=== PATIENT | male | born 1970 | race Caucasian/White ===

== ENCOUNTER 2020-07-01 11:37 | Inpatient (IN) ==
[2020-07-01] MEDS ORDERED: DEXAMETHASONE SOD INJ 10 MG/ML VIAL IV ONE (12:02)
--- NOTE | 2020-07-01 12:33 | Emergency Department Note ---
Impression & Plan COVID-19, Hypoxia ED Provider Note NAME: RANJEET JAVIER AGE: 49 SEX: M : 1970 ARRIVES VIA: Walk-In INFORMANT: Patient, ED PROVIDER(S): Byron Mcghee MD Chief Complaint: Shortness of breath HPI: Patient does present with worsening shortness of breath exertional dyspnea and lower pulse ox even with oxygen. I had seen the patient yesterday the patient was diagnosed with Covid back on the sixth and has had about 9 days of symptoms in total. Patient had had some diarrhea last night. No nausea or vomi ting. Patient has had occasional fevers and chills. The patient was discharged home on oxygen therapy yesterday but states that with exertion and even at rest the patient does dip into the 80s. The patient has been taking his medications including the Breo. No lower extremity swelling. Patient denies any chest pains but has had some some nonproductive cough. Patient is a non-smoker. ROS: See HPI for pertinent positives and negatives. A total of 10 systems were reviewed and otherwise negative. Past medical history: See below Surgical history: See below Social history: See below Physical Exam: GENERAL: Wearing glasses and a mask. NAD, non-toxic. EYE EXAM: Normal conjunctiva. PERRL, no anisocoria and EOM's grossly intact w/o pain. NECK: Supple, no nuchal rigidity, no adenopathy, non-tender. No signs of meningismus. LUNGS: Clear to auscultation. Normal chest wall mechanics. HEART: NSR, no MRG. ABDOMEN: Abdomen soft, non-tender, normo-active bowel sounds, no masses, no rebound or guarding. BACK: No CVA TTP. SKIN: No rashes and no bruising. UPPER EXTREMITIES: Upper extremities are grossly normal. LOWER EXTREMITIES: Grossly normal, no edema. Negative Homans' sign bilaterally. NEURO EXAM: A&O x3, cranial nerves II-XII grossly intact, normal speech, moves all 4 extremities on command w/o issue. Differential diagnoses: Reactive airway disease, pneumonia, pneumothorax, COPD, CHF, infections, cardiac ischemia, pulmonary embolism, musculoskeletal, gastrointestinal, as well as other pathologies. Course: Patient was seen and evaluated the bedside. Full history physical exam was performed. EKG: Indication: Shortness of breath Imaging Studies: Radiology results as stated below per my review in the radiologist's interpretation: XR chest 1V portable HISTORY: 49 years-old Male weakness acute weakness COMPARISON: Chest radiograph 06/30/2020 TECHNIQUE: Portable AP view of the chest FINDINGS: Cardiac silhouette is upper limits of normal in size. No pneumothorax or large pleural effusion. Interstitial coarsening redemonstrated with generally unchanged appearance of the bibasilar predominant patchy airspace opacities. IMPRESSION: No significant change of the bilateral pulmonary opacities suggestive of multifocal pneumonia. ACT 112: Negative or not required by law. The above report was generated using voice recognition software. It may contain grammatical, syntax or spelling errors. Electronically signed by: Reid Suazo M.D. 07/01/2020 1:07 PM Dictated: 07/01/201305 Transcribed: 07/01/201305 Cardiac monitoring: An order was placed for continuous cardiac monitoring. The monitor shows a rate of 76 with sinus rhythm. MDM: Patient did present with concern for worsening shortness of breath and recent Covid illness. Blood work was obtained along with an EKG troponin chest x-ray the patient was given dexamethasone and IV fluids. Pro-Laejo and blood cultures also obtained. Given the patient's hypoxia and symptoms even on at home oxygen I did speak the on-call hospitalist. The patient did receive his dexamethasone. I did speak with Dr. Guzman of the [facility] physician group. Critical Care: I have personally spent 45 minutes of critical care time in direct management of this patient. This includes bedside care, interpretation of diagnostic studies, and testing, discussion with consultants, patient, and family members, and other require inpatient management activities. This 45 minutes is in excess of all [facility] billable procedures. Past Med/Surg History Medical History No pertinent past medical history Surgical History No pertinent past surgical history Family History (Updated 07/01/20 @ 14:06 by Mary Guzman MD) Other Family history non-contributory Social History Smoking Status: Never smoker Feels Safe at Home: Yes Allergies Allergies Allergy/AdvReac Type Severity Reaction Status Date / Time shellfish derived Allergy LIPS & Verified 07/01/20 12:27 MOUTH SWELLS, ITCHY Home Meds Home Medications Medication Instructions Recorded Confirmed Queretin 1 tab PO DAILY 06/30/20 07/01/20 ascorbic acid (vitamin C) [Vitamin 1 g PO DAILY 06/30/20 07/01/20 C] azithromycin 500 mg PO DAILY 06/30/20 07/01/20 cholecalciferol (vitamin D3) 125 mcg PO DAILY 06/30/20 07/01/20 [Vitamin D3] dextroamphetamine-amphetamine 37.5 mg PO DAILY 06/30/20 07/01/20 [Mydayis] fluticasone furoate-vilanterol 1 ea INHALATION DAILY 06/30/20 07/01/20 [Breo Ellipta] montelukast [Singulair] 10 mg PO DAILY 06/30/20 07/01/20 prednisone 20 mg PO UD 06/30/20 07/01/20 zinc 50 mg PO DAILY 06/30/20 07/01/20 Previous Rx's Medication Instructions Recorded dexamethasone 6 mg PO DAILY #6 tab 06/30/20 Results & Data (ED) Vital Signs Vital Signs - 24 hr 07/01/20 11:41 07/01/20 12:03 07/01/20 12:28 Temperature 36.8 C Temperature Source Oral Pulse Rate 76 Pulse Rate [Apical] Pulse Rate from SpO2 Sensor Respiratory Rate 18 Respiratory Effort / Characteristics Short of Breath SOB on Exertion Blood Pressure 157/105 H Blood Pressure [Left Arm] Blood Pressure Mean 122 Blood Pressure Mean [Left Arm] Pulse Oximetry 91 94 94 Oxygen Delivery Method Nasal Cannula Nasal Cannula Nasal Cannula Oxygen Flow Rate 3 4 4 Sepsis Recent Fever Within 48 Hours No Sepsis New/Unexplained Change in Mental Status No Sepsis Action Taken by Nursing No Action Required 07/01/20 12:34 07/01/20 13:01 07/01/20 13:30 Temperature Temperature Source Pulse Rate 74 72 64 Pulse Rate [Apical] Pulse Rate from SpO2 Sensor 74 71 65 Respiratory Rate 24 27 H 16 Respiratory Effort / Characteristics Blood Pressure 142/86 H 141/82 H 154/94 H Blood Pressure [Left Arm] Blood Pressure Mean 99 98 111 Blood Pressure Mean [Left Arm] Pulse Oximetry 94 93 95 Oxygen Delivery Method Oxygen Flow Rate Sepsis Recent Fever Within 48 Hours Sepsis New/Unexplained Change in Mental Status Sepsis Action Taken by Nursing 07/01/20 14:30 07/01/20 15:00 Temperature Temperature Source Pulse Rate 73 Pulse Rate [Apical] 75 Pulse Rate from SpO2 Sensor 76 Respiratory Rate 28 H Respiratory Effort / Characteristics Blood Pressure 170/97 H Blood Pressure [Left Arm] 158/96 H Blood Pressure Mean 120 Blood Pressure Mean [Left Arm] 116 Pulse Oximetry 95 93 Oxygen Delivery Method Oxygen Flow Rate Sepsis Recent Fever Within 48 Hours Sepsis New/Unexplained Change in Mental Status Sepsis Action Taken by [facility]way Medications Current Medication List: was personally reviewed by me Laboratory Data Attestation: I reviewed the patient's lab results. Result diagrams: 07/01/20 12:42 07/01/20 12:42 Lab Results 07/01/20 07/01/20 07/01/20 Range/Units 12:42 12:42 12:42 WBC 8.79 (4.8-10.8) K/uL RBC 5.07 (4.7-6.1) M/uL Hgb 15.4 (14.0-18.0) g/dL Hct 43.7 (42-52) % MCV 86.2 (80-100) fL MCH 30.4 (25-34) pg MCHC 35.2 (32-36) g/dL RDW Std Deviation 40.0 (36.4-46.3) fL RDW Coeff of Melani 12.6 (11.5-14.5) % Plt Count 245 (130-400) K/uL MPV 10.3 (7.4-10.4) fL Immature Gran % (Auto) 0.3 % Neut % (Auto) 87.4 % Lymph % (Auto) 7.2 % Mcnairy % (Auto) 5.1 % Eos % (Auto) 0.0 % Baso % (Auto) 0.0 % Neut # (Auto) 7.68 H (1.4-6.5) K/uL Lymph # (Auto) 0.63 L (1.2-3.4) K/uL Mcnairy # (Auto) 0.45 (0.11-0.59) K/uL Eos # (Auto) 0.00 (0-0.5) K/uL Baso # (Auto) 0.00 (0-0.2) K/uL Immature Gran # (Auto) 0.03 H (0.00-0.02) K/uL D-Dimer (0-500) ug/L FEU Sodium 136 (136-145) mmol/L Potassium 4.2 (3.5-5.1) mmol/L Chloride 105 (98-107) mmol/L Carbon Dioxide 23 (21-32) mmol/L Anion Gap 8.0 (3-11) BUN 20 H (7-18) mg/dl Creatinine 0.99 (0.6-1.4) mg/dl Est Cr Clr Drug Dosing 117.2 ml/min Est GFR ( Amer) 101.8 Est GFR (Non-Af Amer) 87.8 BUN/Creatinine Ratio 20.1 H (10-20) Glucose 138 H (70-99) mg/dl Calcium 9.0 (8.5-10.1) mg/dl Total Bilirubin 0.4 (0.2-1) mg/dl AST 63 H (15-37) U/L ALT 63 (12-78) U/L Alkaline Phosphatase 41 L (45-117) U/L Total Protein 7.2 (6.4-8.2) gm/dl Albumin 2.8 L (3.4-5.0) gm/dl Globulin 4.4 H (2.5-4.0) gm/dl Albumin/Globulin Ratio 0.6 L (0.9-2) Procalcitonin 0.11 (0-0.5) ng/ml TSH 0.841 (0.300-4.500) uIu/ml 07/01/20 Range/Units 13:13 WBC (4.8-10.8) K/uL RBC (4.7-6.1) M/uL Hgb (14.0-18.0) g/dL Hct (42-52) % MCV (80-100) fL MCH (25-34) pg MCHC (32-36) g/dL RDW Std Deviation (36.4-46.3) fL RDW Coeff of Melani (11.5-14.5) % Plt Count (130-400) K/uL MPV (7.4-10.4) fL Immature Gran % (Auto) % Neut % (Auto) % Lymph % (Auto) % Mcnairy % (Auto) % Eos % (Auto) % Baso % (Auto) % Neut # (Auto) (1.4-6.5) K/uL Lymph # (Auto) (1.2-3.4) K/uL Mcnairy # (Auto) (0.11-0.59) K/uL Eos # (Auto) (0-0.5) K/uL Baso # (Auto) (0-0.2) K/uL Immature Gran # (Auto) (0.00-0.02) K/uL D-Dimer 400 (0-500) ug/L FEU Sodium (136-145) mmol/L Potassium (3.5-5.1) mmol/L Chloride (98-107) mmol/L Carbon Dioxide (21-32) mmol/L Anion Gap (3-11) BUN (7-18) mg/dl Creatinine (0.6-1.4) mg/dl Est Cr Clr Drug Dosing ml/min Est GFR ( Amer) Est GFR (Non-Af Amer) BUN/Creatinine Ratio (10-20) Glucose (70-99) mg/dl Calcium (8.5-10.1) mg/dl Total Bilirubin (0.2-1) mg/dl AST (15-37) U/L ALT (12-78) U/L Alkaline Phosphatase (45-117) U/L Total Protein (6.4-8.2) gm/dl Albumin (3.4-5.0) gm/dl Globulin (2.5-4.0) gm/dl Albumin/Globulin Ratio (0.9-2) Procalcitonin (0-0.5) ng/ml TSH (0.300-4.500) uIu/ml Administered Medications Remdesivir 200 mg/ Sodium (Chloride) 250 mls @ 125 mls/hr IV ONE STA; Protocol Stop: 07/01/20 17:08 Last Admin: 07/01/20 15:33 Dose: 125 mls/hr Documented by: [id number] Discontinued Medications Dexamethasone (Dexamethasone Sod Inj 10 Mg/Ml Vial) 6 mg IV NOW ONE Stop: 07/01/20 12:03 Last Admin: 07/01/20 12:39 Dose: 6 mg Documented by: [id number] Discharge Plan Visit Data Chief Complaint: Shortness of Breath/Dyspnea Stated Complaint: COVID +,SEVERE SOB ED Provider: Byron Mcghee Discharge Problem: COVID-19, Hypoxia Forms Stand Alone Forms: My [facility] [place] [facility] Prest[facility] Prescriptions Prescriptions: No Action ascorbic acid (vitamin C) [Vitamin C] 1,000 mg Tablet 1 g PO DAILY RF: 0 prednisone 20 mg tablet 20 mg PO UD RF: 0 montelukast [Singulair] 10 mg tablet 10 mg PO DAILY RF: 0 zinc 50 mg Tablet 50 mg PO DAILY RF: 0 azithromycin 500 mg tablet 500 mg PO DAILY RF: 0 cholecalciferol (vitamin D3) [Vitamin D3] 125 mcg (5,000 unit) Tablet 125 mcg PO DAILY RF: 0 Breo Ellipta 200-25 mcg/dose blister with device 1 ea INHALATION DAILY RF: 0 Mydayis 37.5 mg capsule, ER triphasic 24 hr 37.5 mg PO DAILY RF: 0 Queretin 1 tab PO DAILY RF: 0 dexamethasone 6 mg tablet 6 mg PO DAILY Qty: 6 RF: 0 Referrals Referrals: Mir Farley [Primary Care Provider] -
[2020-07-01 13:00] LABS: Hematocrit (blood only) 43.7 % (42-52); Hemoglobin 15.4 g/dL (14.0-18.0); Immature Granulocytes # (auto) 0.03 K/uL (0.00-0.02); Immature Granulocytes % (auto) 0.3 %; Lymphocytes # (auto) 0.63 K/uL (1.2-3.4); Lymphocytes % (auto) 7.2 %; Mean Corpuscular Hemoglobin 30.4 pg (25-34); Mean Corpuscular Hgb Conc 35.2 g/dL (32-36); Mean Corpuscular Volume 86.2 fL (80-100); Mean Platelet Volume 10.3 fL (7.4-10.4); Monocytes # (auto) 0.45 K/uL (0.11-0.59); Monocytes % (auto) 5.1 %; Neutrophils # (auto) 7.68 K/uL (1.4-6.5); Neutrophils % (auto) 87.4 %; Platelet Count 245 K/uL (130-400); RDW Coefficient of Variation 12.6 % (11.5-14.5); Red Blood Count 5.07 M/uL (4.7-6.1); White Blood Count 8.79 K/uL (4.8-10.8)
--- NOTE | 2020-07-01 13:08 | XRay Report ---
XR chest 1V portable HISTORY: 49 years-old Male weakness acute weakness COMPARISON: Chest radiograph 06/30/2020 TECHNIQUE: Portable AP view of the chest FINDINGS: Cardiac silhouette is upper limits of normal in size. No pneumothorax or large pleural effusion. Inte rstitial coarsening redemonstrated with generally unchanged appearance of the bibasilar predominant p atchy airspace opacities. IMPRESSION: No significant change of the bilateral pulmonary opacities suggestive of multifocal pneum onia. ACT 112: Negative or not required by law. The above report was generated using voice recognition software. It may contain grammatical, syntax o r spelling errors. Electronically signed by: Reid Suazo M.D. 07/01/2020 1:07 PM
[2020-07-01 13:21] LABS: Albumin Level 2.8 gm/dl (3.4-5.0); BUN Creatinine Ratio 20.1 (10-20); Creatinine Clr Calc Pharmacy 117.2 ml/min; Est GFR (African American) 101.8; Est GFR (Non-African American) 87.8; Potassium 4.2 mmol/L (3.5-5.1)
[2020-07-01 13:31] LABS: Albumin Globulin Ratio 0.6 (0.9-2); Bilirubin,Total 0.4 mg/dl (0.2-1); Globulin 4.4 gm/dl (2.5-4.0); Thyroid Stimulating Hormone 0.841 uIu/ml (0.300-4.500); Total Protein 7.2 gm/dl (6.4-8.2)
--- NOTE | 2020-07-01 13:59 | History & Physical Report ---
Date of Service July 01, 2020 Assessment & Plan (1) Pneumonia due to COVID-19 virus: Patient presents with worsening hypoxia in the setting of Covid-19 pneumonia. He is around day 8-9 of his illness Admit to telemetry unit Continue supplemental O2 and wean off as needed keep pulse ox greater than 92% -Continue dexamethasone 6 mg IV once daily x10-day course -He is on the borderline of whether remdesivir or convalescent plasma would be of any utility, however he would really like to be treated with them (his friend is an infectious disease doctor at [facility] and recommended this)-start remdesivir x5-day course and verbally consented for convalescent plasma -Pulmonary toilet -Guaifenesin DM as needed -Albuterol every 6 hours scheduled Continue home zinc sulfate, vitamin D -Follow CBC, CMP, ESR, CRP, LDH in the morning (2) Hypoxia: Secondary to Covid-19 pneumonia D-dimer is negative Pulmonary toilet as above and treatment with Decadron as above Flutter valve 3 times daily and incentive spirometry Albuterol Continue supplemental O2 and wean off as able to Advised prone positioning as often as possible which she is able to do (3) Cough: Has a chronic cough prior to having Covid and takes Singulair for this Continue Singulair Continue Breo (4) Elevated LFTs: Minimally elevated AST at 63 Likely secondary to Covid-19 No abdominal pain Follow LFTs in the morning (5) ADHD: Can continue home medication if brought in (6) DVT prophylaxis: Lovenox 40 mg SQ twice daily Disposition-admit to telemetry unit, expected least a 2 midnight stay History of Present Illness Chief Complaint: Covid-19 pneumonia, worsening hypoxia Primary Care Provider: Mir Farley This patient is a 49-year-old male with no significant past medical history who presents to the ER for the second time in 2 days with worsening hypoxia at home and shortness of breath after being diagnosed with Covid-19 on 06/25. He contracted Covid-19 likely from his who returned from traveling to [facility]. He has had a productive cough and was seen in the ER yesterday and had a pulse ox of 94-95% on room air at rest but dropped to 85% with exertion and was sent home with supplemental O2 and a prescription for dexamethasone. He reports he returned today after worsening shortness of breath and pulse ox in the high 80s even on the oxygen at rest. He was taking the prescribed dexamethasone, as well as a Breo Ellipta inhaler and had completed a course of azithromycin that he was prescribed as an outpatient by his PCP. In the ER here today, he was on 4 L nasal cannula to maintain pulse ox of 94%. His CBC was within normal limits except for some mild lymphopenia, his chemistry was within normal limits, except for mild elevation of AST which was actually improved from yesterday. A D-dimer was negative. Urinalysis was negative. Chest x-ray showed no significant change of the bilateral pulmonary opacities suggestive of multifocal pneumonia when compared to chest x-ray from 06/30. Vitals revealed hypoxia and tachypnea, but no fever and he was hypertensive. He will be admitted for acute respiratory failure with hypoxia in the setting of Covid-19 pneumonia Allergies Allergy/AdvReac Type Severity Reaction Status Date / Time shellfish derived Allergy LIPS & Verified 07/01/20 12:27 MOUTH SWELLS, ITCHY Home Medications Medication Instructions Recorded Confirmed Type Queretin 1 tab PO DAILY 06/30/20 07/01/20 History ascorbic acid (vitamin C) [Vitamin 1 g PO DAILY 06/30/20 07/01/20 History C] azithromycin 500 mg PO DAILY 06/30/20 07/01/20 History cholecalciferol (vitamin D3) 125 mcg PO DAILY 06/30/20 07/01/20 History [Vitamin D3] dexamethasone 6 mg PO DAILY #6 tab 06/30/20 07/01/20 Rx dextroamphetamine-amphetamine 37.5 mg PO DAILY 06/30/20 07/01/20 History [Mydayis] fluticasone furoate-vilanterol 1 ea INHALATION DAILY 06/30/20 07/01/20 History [Breo Ellipta] montelukast [Singulair] 10 mg PO DAILY 06/30/20 07/01/20 History prednisone 20 mg PO UD 06/30/20 07/01/20 History zinc 50 mg PO DAILY 06/30/20 07/01/20 History Past Med/Surg History Medical History (Updated 07/01/20 @ 21:16 by Mary Guzman MD) ADHD Cough Surgical History (Updated 07/01/20 @ 20:55 by Mary Guzman MD) History of lipoma Family History Father Leukemia Mother Multiple sclerosis Stroke Social History (Updated 07/01/20 @ 20:59 by Mary Guzman MD) Smoking Status: Never smoker Hx Alcohol Use: Yes Hx Substance Use: Yes Last Used Substance: Unknown Substance Use Type Other:: Marijuana once every two years Preferred Language: Dutch Communication Ability: Effective Stretch Machine Operator Required: No Beliefs That Will Affect Care: None Current Living Situation: Family Current Living Situation Comment: Lives w/ and two sons current occupational status: employed 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 [employer] Other Information That Helps Us Care for You: No Feels Safe at Home: Yes Safety Concerns: Feels Safe At This Time Assistive Devices: Oxygen - Continuous Review of Systems Review of Systems: All systems reviewed & are unremarkable except as noted in HPI & below Denies headache or lightheadedness, no chest pain, no abdominal pain, no nausea/vomiting/diarrhea Positive occasional fevers at home Physical Exam Constitutional: WD/WN, vitals as above Eyes: + anicteric sclerae Neck: trachea midline, no thyromegaly Respiratory: Auscultation: + crackles (bibasilar); no rhonchi and no wheezes Cardiovascular: RRR, no murmur, no edema Chest (Breasts): Chest: normal inspection of chest Gastrointestinal (Abdomen): normal bowel sounds, soft, nontender, no hepatosplenomegaly Musculoskeletal: Extremities: extremities normal to inspection; no cyanosis and no clubbing Skin: no rashes, warm and dry Neurologic: moves all extremities and awake; no focal motor deficits Psychiatric: A+Ox3, euthymic affect Lymphatic: no lymphedema Results & Data Results & Data ([facility]) Vital Signs (Past 12 Hours) Vital Signs Temp Pulse Resp BP Pulse Ox 07/01/20 12:28 94 07/01/20 12:03 94 07/01/20 11:41 36.8 C 76 18 157/105 H 91 Laboratory Results 07/01/20 07/01/20 07/01/20 Range/Units 12:42 12:42 12:42 WBC 8.79 (4.8-10.8) K/uL RBC 5.07 (4.7-6.1) M/uL Hgb 15.4 (14.0-18.0) g/dL Hct 43.7 (42-52) % MCV 86.2 (80-100) fL MCH 30.4 (25-34) pg MCHC 35.2 (32-36) g/dL RDW Std Deviation 40.0 (36.4-46.3) fL RDW Coeff of Melani 12.6 (11.5-14.5) % Plt Count 245 (130-400) K/uL MPV 10.3 (7.4-10.4) fL Immature Gran % (Auto) 0.3 % Neut % (Auto) 87.4 % Lymph % (Auto) 7.2 % Edgar % (Auto) 5.1 % Eos % (Auto) 0.0 % Baso % (Auto) 0.0 % Neut # (Auto) 7.68 H (1.4-6.5) K/uL Lymph # (Auto) 0.63 L (1.2-3.4) K/uL Edgar # (Auto) 0.45 (0.11-0.59) K/uL Eos # (Auto) 0.00 (0-0.5) K/uL Baso # (Auto) 0.00 (0-0.2) K/uL Immature Gran # (Auto) 0.03 H (0.00-0.02) K/uL Sodium 136 (136-145) mmol/L Potassium 4.2 (3.5-5.1) mmol/L Chloride 105 (98-107) mmol/L Carbon Dioxide 23 (21-32) mmol/L Anion Gap 8.0 (3-11) BUN 20 H (7-18) mg/dl Creatinine 0.99 (0.6-1.4) mg/dl Est Cr Clr Drug Dosing 117.2 ml/min Est GFR ( Amer) 101.8 Est GFR (Non-Af Amer) 87.8 BUN/Creatinine Ratio 20.1 H (10-20) Glucose 138 H (70-99) mg/dl Calcium 9.0 (8.5-10.1) mg/dl Total Bilirubin 0.4 (0.2-1) mg/dl AST 63 H (15-37) U/L ALT 63 (12-78) U/L Alkaline Phosphatase 41 L (45-117) U/L Total Protein 7.2 (6.4-8.2) gm/dl Albumin 2.8 L (3.4-5.0) gm/dl Globulin 4.4 H (2.5-4.0) gm/dl Albumin/Globulin Ratio 0.6 L (0.9-2) Procalcitonin 0.11 (0-0.5) ng/ml TSH 0.841 (0.300-4.500) uIu/ml Troponin from 06/30 was negative Diagnostic Findings Chest x-ray image personally reviewed by me and agree with phone report: XR chest 1V portable HISTORY: 49 years-old Male weakness acute weakness COMPARISON: Chest radiograph 06/30/2020 TECHNIQUE: Portable AP view of the chest FINDINGS: Cardiac silhouette is upper limits of normal in size. No pneumothorax or large pleural effusion. Interstitial coarsening redemonstrated with generally unchanged appearance of the bibasilar predominant patchy airspace opacities. IMPRESSION: No significant change of the bilateral pulmonary opacities suggestive of multifocal pneumonia. ECG Additional Comments: ECG from 07/01/2020 at 1228 with normal sinus rhythm, rate 66, nonspecific intraventricular conduction delay, no change from previous Code Status & VTE Plan Code Status Full code VTE Prophylaxis Plan VTE Prophylaxis will be ordered: Yes PG Care Time/CCT Total # of Minutes Spent Total Time Spent with Patient: Total time spent is greater than 50% in coordination of care (as documented) at patient's floor/unit and/or counseling patient: Coding Level of Care Code 51031 Initial Inpt Care Lvl 3 Diagnoses Pneumonia due to COVID-19 virus U07.1; J12.82 Hypoxia R09.02 Cough R05 Elevated LFTs R79.89 ADHD F90.9 DVT prophylaxis Z29.9
[2020-07-01 15:06] LABS: D Dimer 400 ug/L FEU (0-500)
[2020-07-01] MEDS ORDERED: REMDESIVIR 200 MG in SODIUM CHLORIDE 0.9% 210 ML IV STA (15:09)
--- NOTE | 2020-07-01 15:29 | Electrocardiogram Report ---
Test Reason : Blood Pressure : / mmHG Vent. Rate : 066 BPM Atrial Rate : 066 BPM P-R Int : 172 ms QRS Dur : 120 ms QT Int : 424 ms P-R-T Axes : 024 011 041 degrees QTc Int : 444 ms Normal sinus rhythm Right bundle branch block Borderline ECG When compared with ECG of 30-JUN-2020 15:21, No significant change was found Confirmed by Driss Shelby ([id number]) on 07/01/2020 3:29:25 PM Referred By: REFERRED SELF Confirmed By:Driss Shelby
[2020-07-01] MEDS ORDERED: guaiFENesin/DEXTROM SYRUP 100MG/10MG 5ML UDC PO PRN (17:06)
[2020-07-01] MEDS ORDERED: ONDANSETRON INJ 2 MG/ML 2 ML VIAL IV PRN (17:06)
[2020-07-01] MEDS: SODIUM CHLORIDE 0.9% 10ML FLUSH IV SCH (17:55)
[2020-07-01] MEDS: ALBUTEROL HFA 8 GM INHALER INH SCH (19:45)
[2020-07-01] MEDS: ENOXAPARIN INJ 40 MG/0.4 ML SYR SQ SCH (20:17)
[2020-07-02] MEDS: ACETAMINOPHEN 325 MG TAB PO PRN (01:02)
[2020-07-02] MEDS: ALBUTEROL HFA 8 GM INHALER INH SCH ×2 (01:12→07:37)
[2020-07-02 07:11] LABS: Basophils # (auto) 0.01 K/uL (0-0.2); Basophils % (auto) 0.1 %; Hematocrit (blood only) 40.7 % (42-52); Hemoglobin 14.2 g/dL (14.0-18.0); Immature Granulocytes # (auto) 0.03 K/uL (0.00-0.02); Immature Granulocytes % (auto) 0.3 %; Lymphocytes # (auto) 1.44 K/uL (1.2-3.4); Lymphocytes % (auto) 12.7 %; Mean Corpuscular Hemoglobin 30.3 pg (25-34); Mean Corpuscular Hgb Conc 34.9 g/dL (32-36); Mean Corpuscular Volume 86.8 fL (80-100); Mean Platelet Volume 10.3 fL (7.4-10.4); Monocytes # (auto) 0.64 K/uL (0.11-0.59); Monocytes % (auto) 5.6 %; Neutrophils # (auto) 9.23 K/uL (1.4-6.5); Neutrophils % (auto) 81.3 %; Platelet Count 276 K/uL (130-400); RDW Coefficient of Variation 12.5 % (11.5-14.5); Red Blood Count 4.69 M/uL (4.7-6.1); White Blood Count 11.35 K/uL (4.8-10.8)
[2020-07-02 07:41] LABS: Albumin Level 2.6 gm/dl (3.4-5.0); BUN Creatinine Ratio 19.1 (10-20); C Reactive Protein 9.37 mg/dl (0-0.29); Creatinine Clr Calc Pharmacy 113.7 ml/min; Est GFR (African American) 98.2; Est GFR (Non-African American) 84.7; Potassium 4.3 mmol/L (3.5-5.1)
[2020-07-02 07:44] LABS: Albumin Globulin Ratio 0.6 (0.9-2); Bilirubin,Total 0.3 mg/dl (0.2-1); Globulin 4.3 gm/dl (2.5-4.0); Total Protein 6.9 gm/dl (6.4-8.2)
[2020-07-02] MEDS: DEXAMETHASONE SOD PHOSPHATE 6 MG in SYRINGE 0 ML IV SCH (08:20)
[2020-07-02] MEDS: CHOLECALCIFEROL 1,000 UNITS 25 MCG TAB PO SCH (08:23)
[2020-07-02] MEDS: MONTELUKAST SODIUM 10 MG TABLET PO SCH (08:24)
[2020-07-02] MEDS: ASCORBIC ACID 500 MG TAB PO SCH (08:24)
[2020-07-02] MEDS: ZINC SULFATE 220 MG CAPSULE PO SCH (08:24)
[2020-07-02] MEDS: ENOXAPARIN INJ 40 MG/0.4 ML SYR SQ SCH ×2 (08:24→20:41)
[2020-07-02] MEDS: FLUTICASONE/VILANTEROL 200/25MCG 14 PUFFS/INHALER INH SCH (08:25)
[2020-07-02] MEDS: MYDAYIS PO SCH (08:34)
[2020-07-02] MEDS ORDERED: DEXAMETHASONE SOD INJ 10 MG/ML VIAL IV SCH (09:00)
[2020-07-02] MEDS ORDERED: ALBUTEROL HFA 8 GM INHALER INH PRN (11:20)
[2020-07-02] MEDS: SODIUM CHLORIDE 0.9% 10ML FLUSH IV SCH (11:42)
[2020-07-02] MEDS: REMDESIVIR 100 MG in SODIUM CHLORIDE 0.9% 230 ML IV SCH (11:42)
--- NOTE | 2020-07-02 16:24 | XRay Report ---
XR chest 1V portable HISTORY: 49 years-old Male COVID-19 pneumonia, interval change acute shortness of breath. COVID Posi tive. COMPARISON: Chest radiograph 07/01/2020 TECHNIQUE: Portable AP view of the chest FINDINGS: Cardiac silhouette is upper limits of normal in size. No pneumothorax or large pleural effusion. Prog ressively worsened bilateral patchy airspace opacities. Bones appear grossly intact. IMPRESSION: Mildly worsened bilateral pulmonary opacities suggestive of progressive multifocal pneumo kayley. ACT 112: Negative or not required by law. The above report was generated using voice recognition software. It may contain grammatical, syntax o r spelling errors. Electronically signed by: Reid Suazo M.D. 07/02/2020 4:23 PM
[2020-07-02] MEDS: FAMOTIDINE 20 MG TAB PO SCH ×2 (17:00→20:41)
[2020-07-02] MEDS: cefTRIAXone SODIUM 2,000 MG in DEXTROSE 5% 50 ML IV SCH (17:16)
[2020-07-02] MEDS: DOXYCYCLINE HYCLATE 100 MG in DEXTROSE 5% 100 ML IV SCH (17:58)
--- NOTE | 2020-07-02 21:36 | Hospitalist Progress Note ---
Date of Service July 02, 2020 Assessment & Plan (1) Acute respiratory failure with hypoxia: 2nd to extensive COVID-19 pneumonia. I am very concerned he may be in the early development of ARDS from such. Escalating O2 requirements throughout the day. Now on HFNC 10-12 L. Day #2 remdesivir. Day #2 of IV dexamethasone although he had taken some steroids at home prior to admission. s/p plasma infusion early this am. CXR today with worsening b/l infiltrates. Although procalcitonin was negative yesterday will add IV rocephin and IV doxycycline to cover for superimposed bacterial pneumonia just in case. Continue self-proning as much as possible. Continue aggressive pulmonary toilet including flutter valve, incentive chelsy, mucolytics, bronchodilators, etc. No evidence clinically of CHF/volume overload. (2) Pneumonia due to COVID-19 virus: WORSE today clinically & radiographically with increasing O2 requirements. See "acute hypoxic resp failure" above for more information. Add IV antibiotic therapy to cover for any superimposed bacterial pneumonia. Continue home zinc sulfate and vitamin D. Repeat d-dimer in am. Encouraged frequent self-proning & pulmonary toilet. O2 sats 90-92% are acceptable on HFNC. Day #2 of remdesivir and IV dexamethasone. s/p plasma early this am. Cont lovenox BID for DVT proph. Patient recently prescribed Breo as outpatient - will continue for now. Continue vit D, vit C, and zinc supplementation. Add pepcid for GI proph in setting of steroids (and anectodal evidence of possible benefit during COVID illness). (3) Elevated LFTs: Likely secondary to Covid-19 infection. In light of remdesivir usage will recheck ast/alt in am. (4) ADHD: Can continue Mydayis using home stock, if desired by patient. (5) RBBB: As seen on EKG. No ACS or cardiac symptoms at this time. Telemetry wnl. (6) DVT prophylaxis: Lovenox 40 mg SQ twice daily due to higher risk of VTE in setting of COVID updated by phone. Patient updated Re: cxr findings and addition of IV antibiotics. Night physician updated with plan of care. Admission and Anticipated Discharge Date Admission Date: July 01, 2020 Subjective tele overnight wnl with NSR. patient is experiencing O2 desaturation with minimal activity or after coughing spells. O2 requirement escalated thru the day - was on 7 L NC O2 during the visit. he is trying to prone but finds it uncomfortable and challenging. using flutter/incentive as much as possible. cough is persistent, dry, takes his breath away at times. appetite - fair. mild central chest tightness. no abd pain. no vomiting. mild fever overnight (37.7) and chills. Review of Systems Constitutional: + fever, + chills, + fatigue and + weakness Ear, Nose, Mouth, Throat: no sore throat Respiratory: + cough, + dyspnea and + dyspnea on exertion; no hemoptysis, no sputum production and no wheezing Cardiovascular: as per Subjective / HPI; no orthopnea and no edema Gastrointestinal: no abdominal pain, no nausea and no vomiting Integumentary: no rash Psychiatric: + anxiety Physical Exam Constitutional: well developed, well nourished and + acute distress (dyspneic with minimal activity; coughing); no altered mental status ENMT: external ear and nose normal, oropharynx normal Neck: trachea midline, no thyromegaly Respiratory: + respiratory distress, + uses accessory muscles (at times), + cough and + tachypneic Auscultation: + crackles (extensive - bases); no wheezes Cardiovascular: RRR, no murmur, no edema Heart Sounds: normal S1 and normal S2 Vessels: posterior tibial pulses present and dorsalis pedis pulses present; no JVD Gastrointestinal (Abdomen): normal bowel sounds, soft, nontender, no hepatosplenomegaly Skin: no rashes, warm and dry Psychiatric: Orientation: alert and oriented x 3 Results & Data Results & Data ([facility]) Vital Signs (Past 12 Hours) Vital Signs Temp Pulse Pulse Resp BP Pulse Ox 07/02/20 15:02 74 07/02/20 14:54 37.4 C 60 18 150/78 H 89 L 07/02/20 14:53 37.5 C 64 20 151/82 H 93 07/02/20 12:53 88 L 07/02/20 12:06 37.4 C 65 18 165/82 H 89 L Laboratory Results Laboratory Results - last 24 hr 07/01/20 07/02/20 07/02/20 15:39 06:11 06:11 WBC 11.35 H RBC 4.69 L Hgb 14.2 Hct 40.7 L MCV 86.8 MCH 30.3 MCHC 34.9 RDW Std Deviation 40.0 RDW Coeff of Melani 12.5 Plt Count 276 MPV 10.3 Immature Gran % (Auto) 0.3 Neut % (Auto) 81.3 Lymph % (Auto) 12.7 Davidson % (Auto) 5.6 Eos % (Auto) 0.0 Baso % (Auto) 0.1 Neut # (Auto) 9.23 H Lymph # (Auto) 1.44 Davidson # (Auto) 0.64 H Eos # (Auto) 0.00 Baso # (Auto) 0.01 Immature Gran # (Auto) 0.03 H ESR 34 H Sodium Potassium Chloride Carbon Dioxide Anion Gap BUN Creatinine Est Cr Clr Drug Dosing Est GFR ( Amer) Est GFR (Non-Af Amer) BUN/Creatinine Ratio Glucose Calcium Total Bilirubin AST ALT Alkaline Phosphatase Lactate Dehydrogenase C-Reactive Protein Total Protein Albumin Globulin Albumin/Globulin Ratio Blood Type A Positive Antibody Screen NEGATIVE 07/02/20 07/02/20 06:11 06:11 WBC RBC Hgb Hct MCV MCH MCHC RDW Std Deviation RDW Coeff of Melani Plt Count MPV Immature Gran % (Auto) Neut % (Auto) Lymph % (Auto) Davidson % (Auto) Eos % (Auto) Baso % (Auto) Neut # (Auto) Lymph # (Auto) Davidson # (Auto) Eos # (Auto) Baso # (Auto) Immature Gran # (Auto) ESR Sodium 139 Potassium 4.3 Chloride 103 Carbon Dioxide 28 Anion Gap 7.0 BUN 20 H Creatinine 1.02 Est Cr Clr Drug Dosing 113.7 Est GFR ( Amer) 98.2 Est GFR (Non-Af Amer) 84.7 BUN/Creatinine Ratio 19.1 Glucose 120 H Calcium 9.0 Total Bilirubin 0.3 AST 58 H ALT 71 Alkaline Phosphatase 40 L Lactate Dehydrogenase 378 H C-Reactive Protein 9.37 H Total Protein 6.9 Albumin 2.6 L Globulin 4.3 H Albumin/Globulin Ratio 0.6 L Blood Type Antibody Screen Diagnostic Findings cxr - IMPRESSION: Mildly worsened bilateral pulmonary opacities suggestive of progressive multifocal pneumonia. PG Care Time/CCT Total # of Minutes Spent Total Time Spent with Patient: Total time spent is greater than 50% in coordination of care (as documented) at patient's floor/unit and/or counseling patient: Coding Level of Care Code 93681 Subseq Hosp Care Lvl 3 Diagnoses Acute respiratory failure with hypoxia J96.01 Pneumonia due to COVID-19 virus U07.1; J12.82 Elevated LFTs R79.89 ADHD F90.9 Attention deficit-hyperactivity disorder type: unspecified RBBB I45.10 DVT prophylaxis Z29.9 (1) ADHD Attention deficit-hyperactivity disorder type: unspecified Qualified Code(s): F90.9 - Attention-deficit hyperactivity disorder, unspecified type
[2020-07-03] MEDS: DOXYCYCLINE HYCLATE 100 MG in DEXTROSE 5% 100 ML IV SCH ×2 (05:01→17:27)
[2020-07-03 07:58] LABS: Hematocrit (blood only) 44.6 % (42-52); Hemoglobin 15.8 g/dL (14.0-18.0); Mean Corpuscular Hemoglobin 30.5 pg (25-34); Mean Corpuscular Hgb Conc 35.4 g/dL (32-36); Mean Corpuscular Volume 86.1 fL (80-100); Mean Platelet Volume 10.1 fL (7.4-10.4); Platelet Count 277 K/uL (130-400); RDW Coefficient of Variation 12.2 % (11.5-14.5); RDW Standard Deviation 38.5 fL (36.4-46.3); Red Blood Count 5.18 M/uL (4.7-6.1)
[2020-07-03 08:11] LABS: D Dimer 610 ug/L FEU (0-500)
[2020-07-03 08:44] LABS: BUN Creatinine Ratio 24.7 (10-20); Creatinine Clr Calc Pharmacy 124.8 ml/min; Est GFR (African American) 109.8; Est GFR (Non-African American) 94.7; Magnesium 2.2 mg/dl (1.8-2.4); Potassium 3.9 mmol/L (3.5-5.1)
[2020-07-03] MEDS: FLUTICASONE/VILANTEROL 200/25MCG 14 PUFFS/INHALER INH SCH (09:13)
[2020-07-03] MEDS: MYDAYIS PO SCH (09:13)
[2020-07-03] MEDS: DEXAMETHASONE SOD PHOSPHATE 6 MG in SYRINGE 0 ML IV SCH (09:13)
[2020-07-03] MEDS: ZINC SULFATE 220 MG CAPSULE PO SCH (09:14)
[2020-07-03] MEDS: ASCORBIC ACID 500 MG TAB PO SCH (09:14)
[2020-07-03] MEDS: MONTELUKAST SODIUM 10 MG TABLET PO SCH (09:15)
[2020-07-03] MEDS: CHOLECALCIFEROL 1,000 UNITS 25 MCG TAB PO SCH (09:15)
[2020-07-03] MEDS: ENOXAPARIN INJ 40 MG/0.4 ML SYR SQ SCH ×2 (09:16→20:35)
[2020-07-03] MEDS: FAMOTIDINE 20 MG TAB PO SCH ×2 (09:16→20:35)
--- NOTE | 2020-07-03 12:02 | Hospitalist Progress Note ---
Date of Service July 03, 2020 Assessment & Plan (1) Acute respiratory failure with hypoxia: 2nd to extensive COVID-19 pneumonia. Mod-severe. Remains on HFNC 15 L. Day #3 remdesivir. Day #3 of IV dexamethasone although he had taken some steroids at home prior to admission. s/p plasma infusion 07/02/2020. Day #2 IV rocephin and IV doxycycline to cover for superimposed bacterial pneumonia just in case however procal is negative. Continue self-proning as much as possible. Continue aggressive pulmonary toilet including flutter valve, incentive chelsy, mucolytics, bronchodilators, etc. No evidence clinically of CHF/volume overload. (2) Pneumonia due to COVID-19 virus: About the same as yesterday - and remained on 15 L HFNC all day today. See "acute hypoxic resp failure" above for more information. Continue IV antibiotic therapy to cover for any superimposed bacterial pneumonia. Continue home zinc sulfate and vitamin D. Mildly elevated d-dimer noted. Encouraged frequent self-proning & pulmonary toilet. O2 sats 90-92% are acceptable on HFNC. Day #3 of remdesivir and IV dexamethasone. s/p plasma yesterday. Cont lovenox BID for DVT proph. Patient recently prescribed Breo as outpatient recently - will continue for now. Continue vit D, vit C, and zinc supplementation. (3) Elevated LFTs: Likely secondary to Covid-19 infection. Cont daily recheck of ast/alt due to remdesivir usage. (4) ADHD: Can continue Mydayis using home stock, if desired by patient. (5) RBBB: As seen on EKG. No ACS or cardiac symptoms at this time. Telemetry wnl. (6) DVT prophylaxis: Lovenox 40 mg SQ twice daily due to higher risk of VTE in setting of COVID updated by phone yesterday and again this evening Pt's PCP, Dr Mir Farley, updated by phone today total time today spent on care activities including communciation w/ pt, pt's , and PCP - 35 min Admission and Anticipated Discharge Date Admission Date: July 01, 2020 Subjective tele overnight wnl. patient states "I feel a little better today" (on general scale). with that said still feels poorly with dyspnea and cough. dyspnea occurs with minimal exertion and during breathing exercises. trying to prone. cough is dry. mild central chest tightness with deep breathing. eating fair. no fever overnight. very tired. Review of Systems Constitutional: + fatigue and + weakness; no fever and no chills Respiratory: + dyspnea on exertion; no hemoptysis and no wheezing Cardiovascular: no chest pain, no orthopnea and no edema Gastrointestinal: no abdominal pain, no vomiting and no diarrhea/loose stools Musculoskeletal: no body aches Physical Exam Constitutional: well developed, well nourished, + acute distress (dyspneic with minimal activity; coughing) and + ill appearing; no altered mental status ENMT: external ear and nose normal, oropharynx normal Respiratory: + respiratory distress, + cough and + tachypneic Auscultation: + crackles (Bases - modestly improved today); no wheezes Cardiovascular: RRR, no murmur, no edema Heart Sounds: normal S1 and normal S2 Vessels: posterior tibial pulses present and dorsalis pedis pulses present; no JVD Gastrointestinal (Abdomen): normal bowel sounds, soft, nontender, no hepatosplenomegaly Skin: no rashes, warm and dry Psychiatric: Orientation: alert and oriented x 3 Results & Data Results & Data ([facility]) Vital Signs (Past 12 Hours) Vital Signs Temp Pulse Pulse Resp BP Pulse Ox 07/03/20 11:49 36.8 C 57 L 16 138/83 90 07/03/20 07:35 37.1 C 65 16 142/82 H 07/03/20 07:30 56 L 07/03/20 05:07 36.9 C 65 18 147/81 H 07/03/20 01:24 56 L Laboratory Results Laboratory Results - last 24 hr 07/03/20 07/03/20 07/03/20 07:17 07:17 07:17 WBC 12.30 H RBC 5.18 Hgb 15.8 Hct 44.6 MCV 86.1 MCH 30.5 MCHC 35.4 RDW Std Deviation 38.5 RDW Coeff of Melani 12.2 Plt Count 277 MPV 10.1 D-Dimer 610 H* Sodium 134 L Potassium 3.9 Chloride 98 Carbon Dioxide 27 Anion Gap 9.0 BUN 23 H Creatinine 0.93 Est Cr Clr Drug Dosing 124.8 Est GFR ( Amer) 109.8 Est GFR (Non-Af Amer) 94.7 BUN/Creatinine Ratio 24.7 H Glucose 97 Calcium 9.0 Magnesium 2.2 AST 43 H ALT 67 PG Care Time/CCT Total # of Minutes Spent Total Time Spent with Patient: Total time spent is greater than 50% in coordination of care (as documented) at patient's floor/unit and/or counseling patient: Coding Level of Care Code 56305 Subseq Hosp Care Lvl 3 Diagnoses Acute respiratory failure with hypoxia J96.01 Pneumonia due to COVID-19 virus U07.1; J12.82 Elevated LFTs R79.89 ADHD F90.9 Attention deficit-hyperactivity disorder type: unspecified RBBB I45.10 DVT prophylaxis Z29.9 (1) ADHD Attention deficit-hyperactivity disorder type: unspecified Qualified Code(s): F90.9 - Attention-deficit hyperactivity disorder, unspecified type
[2020-07-03] MEDS: SODIUM CHLORIDE 0.9% 10ML FLUSH IV SCH (12:45)
[2020-07-03] MEDS: REMDESIVIR 100 MG in SODIUM CHLORIDE 0.9% 230 ML IV SCH (12:45)
[2020-07-03] MEDS: cefTRIAXone SODIUM 2,000 MG in DEXTROSE 5% 50 ML IV SCH (17:27)
[2020-07-03] MEDS: ACETAMINOPHEN 325 MG TAB PO PRN (19:34)
[2020-07-03] MEDS: MELATONIN 3 MG TAB PO SCH (20:35)
[2020-07-04] MEDS: DOXYCYCLINE HYCLATE 100 MG in DEXTROSE 5% 100 ML IV SCH ×2 (05:43→17:30)
[2020-07-04 07:12] LABS: D Dimer 520 ug/L FEU (0-500)
[2020-07-04 07:28] LABS: BUN Creatinine Ratio 23.3 (10-20); Calcium 8.9 mg/dl (8.5-10.1); Creatinine Clr Calc Pharmacy 130.4 ml/min; Est GFR (African American) 114.7; Potassium 4.2 mmol/L (3.5-5.1)
[2020-07-04] MEDS: ASCORBIC ACID 500 MG TAB PO SCH (07:52)
[2020-07-04] MEDS: FAMOTIDINE 20 MG TAB PO SCH ×2 (07:53→20:36)
[2020-07-04] MEDS: MONTELUKAST SODIUM 10 MG TABLET PO SCH (07:53)
[2020-07-04] MEDS: ZINC SULFATE 220 MG CAPSULE PO SCH (07:54)
[2020-07-04] MEDS: CHOLECALCIFEROL 1,000 UNITS 25 MCG TAB PO SCH (07:54)
[2020-07-04] MEDS: MYDAYIS PO SCH (07:55)
[2020-07-04] MEDS: FLUTICASONE/VILANTEROL 200/25MCG 14 PUFFS/INHALER INH SCH (07:56)
[2020-07-04] MEDS: ENOXAPARIN INJ 40 MG/0.4 ML SYR SQ SCH ×2 (07:56→20:36)
[2020-07-04] MEDS: DEXAMETHASONE SOD PHOSPHATE 6 MG in SYRINGE 0 ML IV SCH (07:57)
[2020-07-04] MEDS: REMDESIVIR 100 MG in SODIUM CHLORIDE 0.9% 230 ML IV SCH (11:31)
[2020-07-04] MEDS: SODIUM CHLORIDE 0.9% 10ML FLUSH IV SCH (11:34)
[2020-07-04] MEDS ORDERED: SODIUM CHLORIDE 0.9% 1000ML 500 ML IV ONE (14:20)
--- NOTE | 2020-07-04 14:22 | Hospitalist Progress Note ---
Date of Service July 04, 2020 Assessment & Plan (1) Acute respiratory failure with hypoxia: 2nd to extensive/severe COVID-19 pneumonia. Remains on HFNC 10-15 L. CTA chest w/o PEs today but extensive, multilobar pneumonia. Day #4 remdesivir. Day #4 of IV dexamethasone although he had taken some steroids at home prior to admission. s/p plasma infusion 07/02/2020. Day #3 IV rocephin and IV doxycycline to cover for superimposed bacterial pneumonia just in case however procal is negative. Recheck procal in am. No evidence of complicating acute CHF. Continue self-proning as much as possible. Encouraged him again to do this. Continue aggressive pulmonary toilet including flutter valve, incentive chelsy, mucolytics, bronchodilators, etc. Likely developing ARDS from COVID-19. (2) Pneumonia due to COVID-19 virus: No better/no worse today. Remains on 15 L HFNC. See "acute hypoxic resp failure" above for more information. CTA findings noted; no PE. Continue IV antibiotic therapy to cover for any superimposed bacterial pneumonia. Mildly elevated d-dimer noted. Encouraged frequent self-proning & pulmonary toilet. O2 sats 90-92% are acceptable on HFNC. Day #4 of remdesivir and IV dexamethasone. s/p plasma. Cont lovenox BID for DVT proph. Patient recently prescribed Breo as outpatient recently - will continue for now. Continue vit D, vit C, and zinc supplementation. (3) ARDS (adult respiratory distress syndrome): 2nd to COVID-19. (4) Elevated LFTs: Likely secondary to Covid-19 infection. Resolved. Cont ast/alt daily due to remdesivir. (5) Hyponatremia: Looks volume depleted on exam -- dry mouth, thirsty, dizzy upon standing, etc. Gave 500cc bolus followed by 1 liter over 10 hours. Urine Na, osm noted. Repeat these in am. BMP in am. (6) Anxiety: Consider low-dose buspar prn. (7) Insomnia: Melatonin. Encouraged blinds up, OOB to chair if tolerated, etc. (8) Candidiasis of mouth and esophagus: vs severe dry mouth. Nystatin lola 5cc ac/hs swish/spit. (9) ADHD: Can continue Mydayis using home stock, if desired by patient. (10) RBBB: As seen on EKG. No ACS or cardiac symptoms at this time. Telemetry wnl. (11) DVT prophylaxis: Lovenox 40 mg SQ twice daily due to higher risk of VTE in setting of COVID updated by phone yesterday and again this evening Pt's PCP, Dr Mir Farley, updated by phone once again today low threshold for moving him to PCU Admission and Anticipated Discharge Date Admission Date: July 01, 2020 Subjective tele stable overnight. patient continues to feel poorly but states "I'm a little better today." shortly after I left the room he had a normal bowel movement. this am before the visit he sat in chair for about an hour. he was quite dyspneic w/ going to and from the chair. he was also very dizzy/lightheaded with walking. after getting back in bed he received his remdesivir and he thinks it caused him to feel dizzy, feet tingly, and he felt exhausted during the infusion. no rash. he continues with cough with any deep breathing exercise. he finds it difficult to prone. appetite fair. he has a friend who is a physician at [facility] that practices infectious diseases and asks about a CT chest. Review of Systems Constitutional: + fatigue, + malaise and + weakness; no fever and no chills Ear, Nose, Mouth, Throat: + dry mouth Respiratory: + cough, + dyspnea and + dyspnea on exertion; no hemoptysis and no sputum production Cardiovascular: + chest pain (central, w/ deep breathing ) and + lightheadedness; no edema Gastrointestinal: no abdominal pain, no nausea, no vomiting and no diarrhea/loose stools Musculoskeletal: no myalgia Integumentary: no rash Psychiatric: + abnormal sleep pattern (only slept 2 hours) and + anxiety Physical Exam Constitutional: well developed, well nourished, + acute distress (dyspneic with minimal activity; coughing) and + ill appearing; no altered mental status ENMT: Mouth: + tongue abnormality (white in appearance) and + dry oral mucous membranes Neck: trachea midline, no thyromegaly Respiratory: + respiratory distress, + cough and + tachypneic Auscultation: + crackles (Bases - again improved w/ better airation today ); no wheezes Cardiovascular: RRR, no murmur, no edema Heart Sounds: normal S1 and normal S2 Vessels: posterior tibial pulses present and dorsalis pedis pulses present; no JVD Gastrointestinal (Abdomen): normal bowel sounds, soft, nontender, no hepatosplenomegaly Skin: no rashes, warm and dry Neurologic: moves all extremities; no focal motor deficits Psychiatric: Orientation: alert and oriented x 3 Affect: + anxious affect Results & Data Results & Data ([facility]) Vital Signs (Past 12 Hours) Vital Signs Temp Pulse Pulse Resp BP Pulse Ox 07/04/20 11:30 37.1 C 58 L 16 148/85 H 96 07/04/20 08:13 36.8 C 53 L 24 152/84 H 96 07/04/20 08:00 96 07/04/20 07:30 46 L 07/04/20 04:00 36.9 C 59 L 22 156/88 H 91 Laboratory Results Laboratory Results - last 24 hr 07/04/20 07/04/20 07/04/20 06:32 06:32 13:20 D-Dimer 520 H* Sodium 132 L Potassium 4.2 Chloride 96 L Carbon Dioxide 31 Anion Gap 5.0 BUN 21 H Creatinine 0.89 Est Cr Clr Drug Dosing 130.4 Est GFR ( Amer) 114.7 Est GFR (Non-Af Amer) 99.0 BUN/Creatinine Ratio 23.3 H Glucose 100 H POC Glucose 166 H Calcium 8.9 AST 36 ALT 63 BSG during visit was 166 supine BP durin visit was about 144/88 PG Care Time/CCT Total # of Minutes Spent Total Time Spent with Patient: Total time spent is greater than 50% in coordination of care (as documented) at patient's floor/unit and/or counseling patient: Coding Level of Care Code 43782 Subseq Hosp Care Lvl 3 Diagnoses Acute respiratory failure with hypoxia J96.01 Pneumonia due to COVID-19 virus U07.1; J12.82 ARDS (adult respiratory distress syndrome) J80 Elevated LFTs R79.89 Hyponatremia E87.1 Anxiety F41.9 Insomnia G47.00 Insomnia type: unspecified Candidiasis of mouth and esophagus B37.81; B37.0 ADHD F90.9 Attention deficit-hyperactivity disorder type: unspecified RBBB I45.10 DVT prophylaxis Z29.9 (1) ADHD Attention deficit-hyperactivity disorder type: unspecified Qualified Code(s): F90.9 - Attention-deficit hyperactivity disorder, unspecified type (2) Insomnia Insomnia type: unspecified Qualified Code(s): G47.00 - Insomnia, unspecified
[2020-07-04] MEDS ORDERED: SODIUM CHLORIDE 0.9% 1000ML 1,000 ML IV SCH (16:15)
[2020-07-04] MEDS ORDERED: OPTIRAY 320 125ml IV ONE (16:19)
--- NOTE | 2020-07-04 16:41 | CT Scan Report ---
CHEST CTA for PULMONARY ARTERIES CT DOSE: 556.96 mGycm HISTORY: COVID pneumonia, hypoxia; eval for PEs TECHNIQUE: Multiaxial CT images of the chest were performed following the intravenous administration of contrast to evaluate the pulmonary arteries. Maximal intensity projection images were also obtaine d. A dose lowering technique was utilized adhering to the principles of ALARA. COMPARISON STUDY: None. FINDINGS: Limited views of the upper abdomen demonstrate normal liver, spleen, and adrenal glands. No rmal caliber esophagus. A few prominent upper right paratracheal lymph nodes. These may be reactive. Additional subcentimeter mediastinal and hilar lymph nodes do not meet CT criteria for pathologic inv olvement. No pleural or pericardial effusions. No suspicious lytic or blastic osseous lesions. Near d iffuse multifocal groundglass airspace opacities with patchy areas of consolidation within the bilate ral lower lobes. This likely represents a viral pneumonia. The central airways are patent. Normal tera iber thoracic aorta with no evidence for dissection. The heart is normal in size. No filling defects within the pulmonary arteries to suggest pulmonary embolus. IMPRESSION: 1. No evidence for pulmonary embolus. 2. Near diffuse bilateral airspace opacities. This likely represents a viral pneumonia. ACT 112: Negative or not required by law. Electronically signed by: Aidan Jang M.D. 07/04/2020 4:40 PM
[2020-07-04] MEDS: cefTRIAXone SODIUM 2,000 MG in DEXTROSE 5% 50 ML IV SCH (16:45)
[2020-07-04] MEDS: NYSTATIN SUSP 500,000 U/5 ML UDC PO SCH ×2 (17:22→20:36)
[2020-07-04] MEDS: MELATONIN 3 MG TAB PO SCH (20:36)
[2020-07-05] MEDS: DOXYCYCLINE HYCLATE 100 MG in DEXTROSE 5% 100 ML IV SCH ×2 (05:42→17:26)
[2020-07-05 07:35] LABS: Estimated Average Glucose 134 mg/dl; Hemoglobin A1C 6.3 % (4.5-5.6)
[2020-07-05 07:40] LABS: BUN Creatinine Ratio 24.9 (10-20); Calcium 8.7 mg/dl (8.5-10.1); Est GFR (African American) 119.9; Est GFR (Non-African American) 103.4; Potassium 3.9 mmol/L (3.5-5.1)
[2020-07-05] MEDS: DEXAMETHASONE SOD PHOSPHATE 6 MG in SYRINGE 0 ML IV SCH (08:10)
[2020-07-05] MEDS: NYSTATIN SUSP 500,000 U/5 ML UDC PO SCH ×4 (08:12→19:54)
[2020-07-05] MEDS: ENOXAPARIN INJ 40 MG/0.4 ML SYR SQ SCH ×2 (08:14→19:53)
[2020-07-05] MEDS: CHOLECALCIFEROL 1,000 UNITS 25 MCG TAB PO SCH (08:14)
[2020-07-05] MEDS: FAMOTIDINE 20 MG TAB PO SCH ×2 (08:14→19:54)
[2020-07-05] MEDS: MONTELUKAST SODIUM 10 MG TABLET PO SCH (08:14)
[2020-07-05] MEDS: ZINC SULFATE 220 MG CAPSULE PO SCH (08:14)
[2020-07-05] MEDS: ASCORBIC ACID 500 MG TAB PO SCH (08:14)
[2020-07-05] MEDS: FLUTICASONE/VILANTEROL 200/25MCG 14 PUFFS/INHALER INH SCH (08:17)
[2020-07-05] MEDS: MYDAYIS PO SCH (08:30)
[2020-07-05] MEDS: REMDESIVIR 100 MG in SODIUM CHLORIDE 0.9% 230 ML IV SCH (12:00)
[2020-07-05] MEDS: SODIUM CHLORIDE 0.9% 10ML FLUSH IV SCH (12:00)
[2020-07-05] MEDS: cefTRIAXone SODIUM 2,000 MG in DEXTROSE 5% 50 ML IV SCH (17:25)
--- NOTE | 2020-07-05 19:40 | Hospitalist Progress Note ---
Date of Service July 05, 2020 Assessment & Plan (1) Acute respiratory failure with hypoxia: 2nd to extensive/severe COVID-19 pneumonia. Remains on HFNC 10-15 L. CTA chest yesterday -- NO PEs but extensive, multilobar pneumonia. Likely has ARDS from COVID. Day #5/5 remdesivir. Day #5/10 of IV dexamethasone although he had taken some steroids at home prior to admission. s/p plasma infusion 07/02/2020. Day #4 IV rocephin and IV doxycycline to cover for superimposed bacterial pneumonia just in case however procal is negative. Repeat procal today still negative. No evidence of complicating acute CHF. Continue self-proning as much as possible. Continue aggressive pulmonary toilet including flutter valve, incentive chelsy, mucolytics, bronchodilators, etc. Repeat cxr in am. CT chest images reviewed w/ patient in detail. (2) Pneumonia due to COVID-19 virus: About the same today. Remains on 10-15 L HFNC. See "acute hypoxic resp failure" above for more information. CTA with no PE. Continue IV antibiotic therapy to cover for any superimposed bacterial pneumonia. Encouraged frequent self-proning & pulmonary toilet. O2 sats 90-92% are acceptable on HFNC. Day #5 of remdesivir and IV dexamethasone. s/p plasma. Cont lovenox BID for DVT proph. Patient recently prescribed Breo as outpatient recently - will continue for now. Continue vit D, vit C, and zinc supplementation. Repeat cxr am. (3) ARDS (adult respiratory distress syndrome): 2nd to COVID-19. (4) Elevated LFTs: Likely secondary to Covid-19 infection. Resolved. Cont ast/alt daily due to remdesivir. (5) Hyponatremia: Yesterday appeared volume depleted, but Na worsened with IV fluids. Urine osm, urine Na today noted. NO further IV fluids. Examines euvolemic today. Repeat BMP am. (6) Anxiety: Consider low-dose buspar prn. (7) Insomnia: Melatonin. Encouraged blinds up, OOB to chair if tolerated, etc. (8) Candidiasis of mouth and esophagus: vs severe dry mouth. Nystatin lola 5cc ac/hs swish/spit. Tongue looks better today. (9) ADHD: Can continue Mydayis using home stock, if desired by patient. (10) RBBB: As seen on EKG. No ACS or cardiac symptoms at this time. Telemetry wnl. (11) DVT prophylaxis: Lovenox 40 mg SQ twice daily due to higher risk of VTE in setting of COVID updated by phone yesterday and again this evening Pt's PCP, Dr Mir Farley, updated by phone once again today Admission and Anticipated Discharge Date Admission Date: July 01, 2020 Subjective tele stable overnight once again. patient sitting up in chair during the visit. upon arrival he says "I feel a little better today." coughs when he does deep breathing with flutter/incentive. GREEN persists - same or marginally better. ambulated to bathroom today. minimal proning. no new symptoms. appetite improving. asks questions about care plan, CT chest results, recovery. Review of Systems Constitutional: + fatigue; no fever and no chills Ear, Nose, Mouth, Throat: no sore throat Respiratory: + cough, + dyspnea, + dyspnea on exertion and + sputum production (slight); no hemoptysis Cardiovascular: no chest pain Gastrointestinal: no abdominal pain, no nausea and no vomiting Physical Exam Constitutional: well developed, well nourished and + ill appearing (but DOES look better today ); no acute distress and no altered mental status ENMT: Mouth: + tongue abnormality (white in appearance but improved today ); oral mucous membranes not dry Respiratory: Auscultation: + crackles (Bases - again improved w/ better airation today ); no wheezes Cardiovascular: RRR, no murmur, no edema Heart Sounds: normal S1 and normal S2 Vessels: posterior tibial pulses present and dorsalis pedis pulses present; no JVD Gastrointestinal (Abdomen): normal bowel sounds, soft, nontender, no hepatosplenomegaly Skin: no rashes, warm and dry Psychiatric: Orientation: alert and oriented x 3 Results & Data Results & Data ([facility]) Vital Signs (Past 12 Hours) Vital Signs Temp Pulse Pulse Resp BP Pulse Ox 07/05/20 17:30 37.4 C 64 20 132/82 93 07/05/20 16:00 78 07/05/20 11:28 37.3 C 65 18 112/70 90 07/05/20 08:00 63 07/05/20 07:41 37.2 C 67 18 134/84 95 Laboratory Results Laboratory Results - last 24 hr 07/05/20 07/05/20 07/05/20 06:25 06:25 06:25 Sodium 130 L Potassium 3.9 Chloride 99 Carbon Dioxide 26 Anion Gap 5.0 BUN 20 H Creatinine 0.80 Est Cr Clr Drug Dosing 145.0 Est GFR ( Amer) 119.9 Est GFR (Non-Af Amer) 103.4 BUN/Creatinine Ratio 24.9 H Glucose 100 H Estimat Average Glucose 134 Hemoglobin A1c 6.3 H Calcium 8.7 Procalcitonin 0.08 Urine Osmolality Ur Random Sodium 07/05/20 07/05/20 Unknown Unknown Sodium Potassium Chloride Carbon Dioxide Anion Gap BUN Creatinine Est Cr Clr Drug Dosing Est GFR ( Amer) Est GFR (Non-Af Amer) BUN/Creatinine Ratio Glucose Estimat Average Glucose Hemoglobin A1c Calcium Procalcitonin Urine Osmolality 680 Ur Random Sodium 97 PG Care Time/CCT Total # of Minutes Spent Total Time Spent with Patient: Total time spent is greater than 50% in coordination of care (as documented) at patient's floor/unit and/or counseling patient: Coding Level of Care Code 98758 Subseq Hosp Care Lvl 2 Diagnoses Acute respiratory failure with hypoxia J96.01 Pneumonia due to COVID-19 virus U07.1; J12.82 ARDS (adult respiratory distress syndrome) J80 Elevated LFTs R79.89 Hyponatremia E87.1 Anxiety F41.9 Insomnia G47.00 Insomnia type: unspecified Candidiasis of mouth and esophagus B37.81; B37.0 ADHD F90.9 Attention deficit-hyperactivity disorder type: unspecified RBBB I45.10 DVT prophylaxis Z29.9 (1) Insomnia Insomnia type: unspecified Qualified Code(s): G47.00 - Insomnia, unspecified (2) ADHD Attention deficit-hyperactivity disorder type: unspecified Qualified Code(s): F90.9 - Attention-deficit hyperactivity disorder, unspecified type
[2020-07-05] MEDS: MELATONIN 3 MG TAB PO SCH (19:54)
[2020-07-06 00:39] LABS: Basophils # (auto) 0.01 K/uL (0-0.2); Basophils % (auto) 0.1 %; Eosinophils # (auto) 0.03 K/uL (0-0.5); Eosinophils % (auto) 0.2 %; Hematocrit (blood only) 43.7 % (42-52); Hemoglobin 15.8 g/dL (14.0-18.0); Immature Granulocytes # (auto) 0.11 K/uL (0.00-0.02); Immature Granulocytes % (auto) 0.8 %; Lymphocytes # (auto) 1.47 K/uL (1.2-3.4); Mean Corpuscular Hemoglobin 30.3 pg (25-34); Mean Corpuscular Hgb Conc 36.2 g/dL (32-36); Mean Corpuscular Volume 83.9 fL (80-100); Mean Platelet Volume 9.8 fL (7.4-10.4); Monocytes # (auto) 0.72 K/uL (0.11-0.59); Monocytes % (auto) 4.9 %; Platelet Count 341 K/uL (130-400); RDW Coefficient of Variation 12.1 % (11.5-14.5); RDW Standard Deviation 36.8 fL (36.4-46.3); Red Blood Count 5.21 M/uL (4.7-6.1); White Blood Count 14.64 K/uL (4.8-10.8)
[2020-07-06 00:57] LABS: Calcium 8.7 mg/dl (8.5-10.1); Creatinine Clr Calc Pharmacy 138.1 ml/min; Est GFR (African American) 117.5; Est GFR (Non-African American) 101.4
[2020-07-06] MEDS: DOXYCYCLINE HYCLATE 100 MG in DEXTROSE 5% 100 ML IV SCH ×2 (05:43→17:41)
[2020-07-06] MEDS: FLUTICASONE/VILANTEROL 200/25MCG 14 PUFFS/INHALER INH SCH (08:02)
[2020-07-06] MEDS: DEXAMETHASONE SOD PHOSPHATE 6 MG in SYRINGE 0 ML IV SCH (08:02)
[2020-07-06] MEDS: CHOLECALCIFEROL 1,000 UNITS 25 MCG TAB PO SCH (08:03)
[2020-07-06] MEDS: NYSTATIN SUSP 500,000 U/5 ML UDC PO SCH ×4 (08:03→20:00)
[2020-07-06] MEDS: ENOXAPARIN INJ 40 MG/0.4 ML SYR SQ SCH ×2 (08:03→20:00)
[2020-07-06] MEDS: MONTELUKAST SODIUM 10 MG TABLET PO SCH (08:03)
[2020-07-06] MEDS: ZINC SULFATE 220 MG CAPSULE PO SCH (08:03)
[2020-07-06] MEDS: ASCORBIC ACID 500 MG TAB PO SCH (08:03)
[2020-07-06] MEDS: FAMOTIDINE 20 MG TAB PO SCH ×2 (08:03→20:00)
[2020-07-06] MEDS: MYDAYIS PO SCH (08:11)
--- NOTE | 2020-07-06 12:11 | XRay Report ---
XR chest 1V portable HISTORY: Shortness of breath. ARDS 2nd COVID-19, interval change COMPARISON: Chest CTA 07/04/2020. FINDINGS: Bilateral patchy airspace opacities most pronounced within the periphery and lower lung zon es consistent with a viral pneumonia. No pneumothorax. No pleural effusions. The heart is normal in s ize. No evidence for pulmonary edema. IMPRESSION: No change in the bilateral airspace opacities consistent with a viral pneumonia. ACT 112: Negative or not required by law. Electronically signed by: Aidan Jang M.D. 07/06/2020 12:10 PM
[2020-07-06] MEDS: cefTRIAXone SODIUM 2,000 MG in DEXTROSE 5% 50 ML IV SCH (16:09)
[2020-07-06] MEDS ORDERED: busPIRone 5 MG TAB PO PRN (16:37)
--- NOTE | 2020-07-06 16:39 | Hospitalist Progress Note ---
Date of Service July 06, 2020 Assessment & Plan (1) Acute respiratory failure with hypoxia: 2nd to extensive/severe COVID-19 pneumonia. Stable from pulmonary standpoint. On grand scale his overall condition appears to be improving albeit slowly. Remains on HFNC 10-15 L - no change from yesterday. CTA chest without PEs but extensive, multilobar pneumonia seen. Likely has ARDS from COVID. Completed 5-day course of remdesivir. Day #6/10 of IV dexamethasone although he had taken some steroids at home prior to admission. s/p plasma infusion 07/02/2020. Day #5 IV rocephin and IV doxycycline to cover for superimposed bacterial pneumonia just in case however procal negative x 2. No evidence of complicating acute CHF. Continue self-proning as much as possible. Again encouraged this today. Continue aggressive pulmonary toilet including flutter valve, incentive chelsy, mucolytics, bronchodilators, etc. Repeat cxr today unchanged from prior film. (2) Pneumonia due to COVID-19 virus: Respiratory status largely unchanged but airation improves each day. Remains on 10-15 L HFNC. See "acute hypoxic resp failure" above for more information. CTA with no PE. Continue IV antibiotic therapy to cover for any superimposed bacterial pneumo kayley. Encouraged frequent self-proning & pulmonary toilet. O2 sats 90-92% are acceptable on HFNC. Completed 5-day remdesivir course. Continue IV dexamethasone. Day #6 of 10. s/p plasma. Cont lovenox BID for DVT proph. Patient recently prescribed Breo as outpatient recently - will continue. Continue vit D, vit C, and zinc supplementation. Repeat cxr today unchanged from prior film. (3) ARDS (adult respiratory distress syndrome): 2nd to COVID-19. (4) Elevated LFTs: Likely secondary to Covid-19 infection. Resolved. (5) Hyponatremia: Lowest level was 130. Today 131. Appears euvolemic on exam today. Repeat BMP in am with serum osm. Consider repeat urine osm and urine Na in am if Na starts to trend downward again. (6) Anxiety: Start low-dose buspar prn. (7) Insomnia: Melatonin. Encouraged blinds up, OOB to chair if tolerated, etc. (8) Candidiasis of mouth and esophagus: vs severe dry mouth. Cont nystatin lola 5cc ac/hs swish/spit. Tongue looks better each day. (9) ADHD: Can continue Mydayis using home stock, if desired by patient. (10) RBBB: As seen on EKG. No ACS or cardiac symptoms at this time. Telemetry continues to be wnl. (11) DVT prophylaxis: Lovenox 40 mg SQ twice daily due to higher risk of VTE in setting of COVID updated by phone daily including today. Pt's PCP, Dr Mir Farley, updated by phone also daily. PT consult requested. Consider pulmonary consultation. Admission and Anticipated Discharge Date Admission Date: July 01, 2020 Subjective patient sitting up in bed during my visit. he again reports feeling better today. appetite is much improved. ate both breakfast/lunch. cough and dyspnea are about the same as yesterday. during the visit he was on 13 L and sats were 92-95%. he is proning although on a limited basis. doing pulm toilet with flutter mainly. he reports poor sleep, vivid dreams vs delirium, and anxiety. does ask for something to help him sleep. Review of Systems Constitutional: + fatigue; no fever and no chills Respiratory: + cough and + sputum production (More sputum than previous) Cardiovascular: no chest pain, no orthopnea and no edema Gastrointestinal: no abdominal pain, no nausea and no vomiting Physical Exam Constitutional: well developed and well nourished; no acute distress and no altered mental status continues to look better today ENMT: Mouth: + tongue abnormality (white in color but improving); oral mucous membranes not dry Neck: trachea midline, no thyromegaly Respiratory: + cough Auscultation: + crackles (Bases - again improved w/ better airation today ); no wheezes Cardiovascular: RRR, no murmur, no edema Heart Sounds: normal S1 and normal S2 Vessels: posterior tibial pulses present and dorsalis pedis pulses present; no JVD Gastrointestinal (Abdomen): normal bowel sounds, soft, nontender, no hepatosplenomegaly Skin: no rashes, warm and dry Psychiatric: Orientation: alert and oriented x 3 Affect: + anxious affect Results & Data Results & Data ([facility]) Vital Signs (Past 12 Hours) Vital Signs Temp Pulse Pulse Resp BP Pulse Ox 07/06/20 15:21 37 C 76 18 134/83 94 07/06/20 14:20 76 07/06/20 12:00 37 C 75 20 128/82 92 07/06/20 08:09 37.6 C H 68 22 120/79 96 07/06/20 08:00 71 07/06/20 04:59 37.3 C 61 22 134/78 92 Laboratory Results Laboratory Results - last 24 hr 07/06/20 07/06/20 00:16 00:16 WBC 14.64 H RBC 5.21 Hgb 15.8 Hct 43.7 MCV 83.9 MCH 30.3 MCHC 36.2 H RDW Std Deviation 36.8 RDW Coeff of Melani 12.1 Plt Count 341 MPV 9.8 Immature Gran % (Auto) 0.8 Neut % (Auto) 84.0 Lymph % (Auto) 10.0 [place] % (Auto) 4.9 Eos % (Auto) 0.2 Baso % (Auto) 0.1 Neut # (Auto) 12.30 H Lymph # (Auto) 1.47 [place] # (Auto) 0.72 H Eos # (Auto) 0.03 Baso # (Auto) 0.01 Immature Gran # (Auto) 0.11 H Sodium 131 L Potassium 4.0 Chloride 99 Carbon Dioxide 29 Anion Gap 3.0 BUN 20 H Creatinine 0.84 Est Cr Clr Drug Dosing 138.1 Est GFR ( Amer) 117.5 Est GFR (Non-Af Amer) 101.4 BUN/Creatinine Ratio 24.0 H Glucose 104 H Calcium 8.7 PG Care Time/CCT Total # of Minutes Spent Total Time Spent with Patient: Total time spent is greater than 50% in coordination of care (as documented) at patient's floor/unit and/or counseling patient: Coding Level of Care Code 82128 Subseq Hosp Care Lvl 2 Diagnoses Acute respiratory failure with hypoxia J96.01 Pneumonia due to COVID-19 virus U07.1; J12.82 ARDS (adult respiratory distress syndrome) J80 Elevated LFTs R79.89 Hyponatremia E87.1 Anxiety F41.9 Insomnia G47.00 Insomnia type: unspecified Candidiasis of mouth and esophagus B37.81; B37.0 ADHD F90.9 Attention deficit-hyperactivity disorder type: unspecified RBBB I45.10 DVT prophylaxis Z29.9 (1) Insomnia Insomnia type: unspecified Qualified Code(s): G47.00 - Insomnia, unspecified (2) ADHD Attention deficit-hyperactivity disorder type: unspecified Qualified Code(s): F90.9 - Attention-deficit hyperactivity disorder, unspecified type
[2020-07-06] MEDS: guaiFENesin 600 MG TABCR PO SCH (20:00)
[2020-07-06] MEDS: ACETAMINOPHEN 325 MG TAB PO PRN (20:01)
[2020-07-06] MEDS: MELATONIN 3 MG TAB PO SCH (21:46)
[2020-07-07] MEDS ORDERED: hydrOXYzine HCl 25 MG TAB PO STA (04:48)
[2020-07-07] MEDS: DOXYCYCLINE HYCLATE 100 MG in DEXTROSE 5% 100 ML IV SCH ×2 (06:02→17:24)
[2020-07-07 07:19] LABS: BUN Creatinine Ratio 21.6 (10-20); Calcium 9.3 mg/dl (8.5-10.1); Creatinine Clr Calc Pharmacy 124.3 ml/min; Est GFR (African American) 111.2; Potassium 3.9 mmol/L (3.5-5.1)
[2020-07-07] MEDS: ENOXAPARIN INJ 40 MG/0.4 ML SYR SQ SCH ×2 (08:27→20:56)
[2020-07-07] MEDS: MYDAYIS PO SCH (08:27)
[2020-07-07] MEDS: NYSTATIN SUSP 500,000 U/5 ML UDC PO SCH ×4 (08:27→20:57)
[2020-07-07] MEDS: MONTELUKAST SODIUM 10 MG TABLET PO SCH (08:28)
[2020-07-07] MEDS: ZINC SULFATE 220 MG CAPSULE PO SCH (08:28)
[2020-07-07] MEDS: guaiFENesin 600 MG TABCR PO SCH ×2 (08:28→20:57)
[2020-07-07] MEDS: DEXAMETHASONE SOD PHOSPHATE 6 MG in SYRINGE 0 ML IV SCH (08:28)
[2020-07-07] MEDS: FAMOTIDINE 20 MG TAB PO SCH ×2 (08:28→20:57)
[2020-07-07] MEDS: CHOLECALCIFEROL 1,000 UNITS 25 MCG TAB PO SCH (08:28)
[2020-07-07] MEDS: ASCORBIC ACID 500 MG TAB PO SCH (08:28)
[2020-07-07] MEDS: FLUTICASONE/VILANTEROL 200/25MCG 14 PUFFS/INHALER INH SCH (08:29)
--- NOTE | 2020-07-07 09:58 | Hospitalist Progress Note ---
Date of Service July 07, 2020 Assessment & Plan (1) Acute respiratory failure with hypoxia: 2nd to extensive/severe COVID-19 pneumonia. Stable from pulmonary standpoint, no tachypnea, no accessory muscles Remains on HFNC 10-15 L - main issue is that he takes off his oxygen, desaturates to 70's CTA chest without PEs but extensive, multilobar pneumonia seen. Likely has ARDS from COVID. Completed 5-day course of remdesivir. Day #7/10 of IV dexamethasone s/p plasma infusion 07/02/2020. Day #6 IV rocephin and IV doxycycline to cover for superimposed bacterial pneumonia, finish tomorrow No evidence of complicating acute CHF. Continue self-proning as much as possible but he is not very willing Continue aggressive pulmonary toilet including flutter valve, incentive chelsy, mucolytics, bronchodilators, etc. Repeat cxr 07/06 unchanged from prior film. (2) Pneumonia due to COVID-19 virus: Respiratory status largely unchanged Remains on 13-15 L HFNC. See "acute hypoxic resp failure" above for more information. CTA with no PE. Continue IV antibiotic therapy to cover for any superimposed bacterial pneumonia. Encouraged frequent self-proning if he will comply O2 sats 90-92% are acceptable on HFNC. Completed 5-day remdesivir course. Continue IV dexamethasone. Day #7 of 10. s/p plasma. Cont lovenox BID for DVT proph. Patient recently prescribed Breo as outpatient recently - will continue. Continue vit D, vit C, and zinc supplementation. move to [address] to keep closer eye on patient, room 279 is not good as there is no window, in the corner not a good room for anxiety, confusion (3) ARDS (adult respiratory distress syndrome): 2nd to COVID-19. (4) Elevated LFTs: Likely secondary to Covid-19 infection. Resolved. (5) Hyponatremia: Lowest level was 130. Today 134 Appears euvolemic on exam (6) Anxiety: Start low-dose buspar prn. (7) Insomnia: Melatonin. Encouraged blinds up, OOB to chair if tolerated, etc. (8) Candidiasis of mouth and esophagus: vs severe dry mouth. Cont nystatin lola 5cc ac/hs swish/spit. Tongue looks good today (9) ADHD: Can continue Mydayis using home stock, if desired by patient. (10) RBBB: As seen on EKG. No ACS or cardiac symptoms at this time. Telemetry continues to be wnl. (11) DVT prophylaxis: Lovenox 40 mg SQ twice daily due to higher risk of VTE in setting of COVID move to [facility] Admission and Anticipated Discharge Date Admission Date: July 01, 2020 Subjective patient laying in bed without his oxygen when I went in, saturations high 70's asked him why he had his oxygen off, he said "I don't know" told him that he needs the oxygen, he shrugged his shoulders, says he is being tortured d/w Dr. Lal, he has been having issues with anxiety and bad dreams, cannot sleep d/w RN, he has been taking his oxygen off at night and now during the day he is completely oriented, knows he is at [facility], it is June 2020 and he knows that the presidential inaugriation is this week he knows he is here with COVID reviewed chart reviewed labs d/w RN, will move to [facility] to have a room with glass doors so he can be visualized quickly, make sure he keeps oxygen in place once oxygen in place his saturations came up to 92%, took him 2 minutes to recover Review of Systems Review of Systems: All systems reviewed & are unremarkable except as noted in Subjective Constitutional: no fever, no chills, no sweats, no fatigue and no weakness Respiratory: + dyspnea and + dyspnea on exertion Psychiatric: + abnormal sleep pattern, + irritability, + anxiety and + confusion; no depression Physical Exam Constitutional: well developed and comfortable; no acute distress Neck: trachea midline, no thyromegaly Respiratory: normal respiratory effort, lungs clear to auscultation Cardiovascular: RRR, no murmur, no edema Gastrointestinal (Abdomen): normal bowel sounds, soft, nontender, no hepatos plenomegaly Musculoskeletal: no cyanosis or clubbing, extremities motor strength 5/5 Skin: no rashes, warm and dry Neurologic: patellar DTR's 2+ bilat, sensation intact and PERRL, EOMI, accommodation nl, no face palsy, no dysarthria Psychiatric: Orientation: alert, oriented x 3 and + guarded Affect: + anxious affect Lymphatic: no cervical or axillary lymphadenopathy Results & Data Results & Data ([facility]) Vital Signs (Past 12 Hours) Vital Signs Temp Pulse Pulse Resp BP Pulse Ox 07/07/20 08:26 37.1 C 71 20 142/90 H 95 07/07/20 08:00 61 07/07/20 04:00 36.8 C 65 20 125/81 95 07/07/20 00:15 60 07/06/20 23:29 36.8 C 60 20 142/90 H 94 Laboratory Results Laboratory Results - last 24 hr 07/07/20 07/07/20 05:51 05:51 Sodium 134 L Potassium 3.9 Chloride 101 Carbon Dioxide 22 Anion Gap 11.0 BUN 20 H Creatinine 0.92 Est Cr Clr Drug Dosing 124.3 Est GFR ( Amer) 111.2 Est GFR (Non-Af Amer) 96.0 BUN/Creatinine Ratio 21.6 H Glucose 100 H Osmolality 279 L Calcium 9.3 Medications Administered Current Inpatient Medications Acetaminophen (Acetaminophen 325 Mg Tab) 650 mg PO Q4H PRN PRN Reason: Pain or Fever Stop: 07/31/20 17:05 Last Admin: 07/06/20 20:01 Dose: 650 mg Documented by: Albuterol (Albuterol Hfa 8 Gm Inhaler) 2 puffs INH Q4 PRN PRN Reason: Shortness Of Breath Or Wheezing Stop: 08/01/20 11:19 Last Admin: 07/03/20 18:16 Dose: 2 puffs Documented by: Ascorbic Acid (Ascorbic Acid 500 Mg Tab) 1,000 mg PO DAILY [facility] Stop: 08/01/20 08:59 Last Admin: 07/07/20 08:28 Dose: 1,000 mg Documented by: Buspirone HCl (Buspirone 5 Mg Tab) 5 mg PO TID PRN PRN Reason: Anxiety Stop: 08/05/20 20:59 Last Admin: 07/06/20 20:01 Dose: 5 mg Documented by: Enoxaparin Sodium (Enoxaparin Inj 40 Mg/0.4 Ml Syr) 40 mg SQ Q12H KRYSTINA Stop: 07/31/20 20:59 Last Admin: 07/07/20 08:27 Dose: 40 mg Documented by: Famotidine (Famotidine 20 Mg Tab) 20 mg PO BID [facility] Stop: 08/01/20 16:59 Last Admin: 07/07/20 08:28 Dose: 20 mg Documented by: Fluticasone/Vilanterol (Fluticasone/Vilanterol 200/25mcg 14 Puffs/Inhaler) 1 puffs INH DAILY [facility] Stop: 08/01/20 08:59 Last Admin: 07/07/20 08:29 Dose: 1 puffs Documented by: Guaifenesin (Guaifenesin 600 Mg Tabcr) 1,200 mg PO Q12 KRYSTINA Stop: 08/05/20 20:59 Last Admin: 07/07/20 08:28 Dose: 1,200 mg Documented by: Guaifenesin/Dextromethorphan (Guaifenesin/Dextrom Syrup 100mg/10mg 5ml Udc) 5 ml PO Q6H PRN PRN Reason: Cough Stop: 07/31/20 17:05 Dexamethasone Sodium Phosphate (6 mg/ Syringe) 1.5 mls @ 1 mls/min IV QAM KRYSTINA Stop: 08/01/20 08:59 Last Admin: 07/07/20 08:28 Dose: 1 mls/min Documented by: Ceftriaxone Sodium 2,000 mg/ (Dextrose) 70 mls @ 100 mls/hr IV Q24H KRYSTINA; Protocol Stop: 07/09/20 16:59 Last Infusion: 07/06/20 16:51 Dose: Infused Documented by: Doxycycline Hyclate 100 mg/ (Dextrose) 110 mls @ 50 mls/hr IV Q12H KRYSTINA; P rotocol Stop: 07/09/20 17:59 Last Infusion: 07/07/20 08:18 Dose: Infused Documented by: Melatonin (Melatonin 3 Mg Tab) 3 mg PO HS [facility] Stop: 08/02/20 20:59 Last Admin: 07/06/20 21:46 Dose: 3 mg Documented by: Montelukast Sodium (Montelukast Sodium 10 Mg Tablet) 10 mg PO DAILY [facility] Stop: 08/01/20 08:59 Last Admin: 07/07/20 08:28 Dose: 10 mg Documented by: Mydayis 37.5mg Er Cap: Non-Formulary Patient's Own Med 1 ea PO DAILY [facility] Stop: 08/01/20 08:59 Last Admin: 07/07/20 08:27 Dose: 37.5 mg Documented by: Nystatin (Nystatin Susp 500,000 U/5 Ml Udc) 5 ml PO QID [facility] Stop: 07/14/20 16:59 Last Admin: 07/07/20 08:27 Dose: 5 ml Documented by: Ondansetron HCl (Ondansetron Inj 2 Mg/Ml 2 Ml Vial) 4 mg IV Q6H PRN PRN Reason: Nausea Stop: 07/31/20 17:05 Last Admin: 07/02/20 08:20 Dose: 4 mg Documented by: Vitamin D (Cholecalciferol 1,000 Units 25 Mcg Tab) 5,000 units PO DAILY KRYSTINA Stop: 08/01/20 08:59 Last Admin: 07/07/20 08:28 Dose: 5,000 units Documented by: Zinc Sulfate (Zinc Sulfate 220 Mg Capsule) 220 mg PO DAILY KRYSTINA Stop: 08/01/20 08:59 Last Admin: 07/07/20 08:28 Dose: 220 mg Documented by: PG Care Time/CCT Total # of Minutes Spent Total Time Spent: 33 Total Time Spent with Patient: Total time spent is greater than 50% in coordination of care (as documented) at patient's floor/unit and/or counseling patient: Coding Level of Care Code 97012 Subseq Hosp Care Lvl 3 Diagnoses Acute respiratory failure with hypoxia J96.01 Pneumonia due to COVID-19 virus U07.1; J12.82 ARDS (adult respiratory distress syndrome) J80 Elevated LFTs R79.89 Hyponatremia E87.1 Anxiety F41.9 Insomnia G47.00 Insomnia type: unspecified Candidiasis of mouth and esophagus B37.81; B37.0 ADHD F90.9 Attention deficit-hyperactivity disorder type: unspecified RBBB I45.10 DVT prophylaxis Z29.9 (1) Insomnia Insomnia type: unspecified Qualified Code(s): G47.00 - Insomnia, unspecified (2) ADHD Attention deficit-hyperactivity disorder type: unspecified Qualified Code(s): F90.9 - Attention-deficit hyperactivity disorder, unspecified type
[2020-07-07] MEDS: cefTRIAXone SODIUM 2,000 MG in DEXTROSE 5% 50 ML IV SCH (16:29)
[2020-07-07] MEDS: MELATONIN 3 MG TAB PO SCH (23:14)
[2020-07-08] MEDS: DOXYCYCLINE HYCLATE 100 MG in DEXTROSE 5% 100 ML IV SCH ×2 (06:38→17:13)
[2020-07-08] MEDS: FLUTICASONE/VILANTEROL 200/25MCG 14 PUFFS/INHALER INH SCH (08:31)
[2020-07-08] MEDS: DEXAMETHASONE SOD PHOSPHATE 6 MG in SYRINGE 0 ML IV SCH (08:31)
[2020-07-08] MEDS: ENOXAPARIN INJ 40 MG/0.4 ML SYR SQ SCH ×2 (08:33→20:00)
[2020-07-08] MEDS: guaiFENesin 600 MG TABCR PO SCH ×2 (08:34→20:00)
[2020-07-08] MEDS: CHOLECALCIFEROL 1,000 UNITS 25 MCG TAB PO SCH (08:35)
[2020-07-08] MEDS: NYSTATIN SUSP 500,000 U/5 ML UDC PO SCH ×4 (08:35→21:42)
[2020-07-08] MEDS: ASCORBIC ACID 500 MG TAB PO SCH (08:35)
[2020-07-08] MEDS: MONTELUKAST SODIUM 10 MG TABLET PO SCH (08:35)
[2020-07-08] MEDS: ZINC SULFATE 220 MG CAPSULE PO SCH (08:35)
[2020-07-08] MEDS: FAMOTIDINE 20 MG TAB PO SCH ×2 (08:35→20:00)
--- NOTE | 2020-07-08 08:40 | Hospitalist Progress Note ---
Date of Service July 08, 2020 Assessment & Plan (1) Acute respiratory failure with hypoxia: 2nd to extensive/severe COVID-19 pneumonia. developing ARDS with increased oxygen requirements placed on high flow, 40L and 100% FiO2 in the evening on 07/07 saturations 85-89% on his back, 92-95% on his stomach encouraged him to lay prone as much as possible discussed that self proning can prevent intubation at this time he does not need intubation Completed 5-day course of remdesivir. Day #8/10 of IV dexamethasone s/p plasma infusion 07/02/2020. Day #7 IV rocephin and IV doxycycline to cover for superimposed bacterial pneumonia, stop today No evidence of complicating acute CHF, he is negative fluid balance for the admission (2) Pneumonia due to COVID-19 virus: CTA with no PE, just shows multifocal pneumonia Encouraged frequent self-proning, see above Completed 5-day remdesivir course. Continue IV dexamethasone. Day #8 of 10. s/p plasma. Cont lovenox BID for DVT proph. Patient recently prescribed Breo as outpatient recently - will continue. Continue vit D, vit C, and zinc supplementation. (3) ARDS (adult respiratory distress syndrome): 2nd to COVID-19 see above with self proning, high flow nasal canula, try to wean down if possible try Ativan 0.5mg IV q8 to help him relax (4) Elevated LFTs: Likely secondary to Covid-19 infection. Resolved. (5) Hyponatremia: Lowest level was 130. 1/18: 134 Appears euvolemic on exam (6) Anxiety: give Ativan 0.5mg IV q8, help him relax while laying prone (7) Insomnia: Melatonin. Encouraged blinds up, OOB to chair if tolerated, etc. (8) Candidiasis of mouth and esophagus: vs severe dry mouth. Cont nystatin lola 5cc ac/hs swish/spit. Tongue looks good today (9) ADHD: Can continue Mydayis using home stock, if desired by patient. (10) RBBB: As seen on EKG. No ACS or cardiac symptoms at this time. Telemetry continues to be wnl. (11) DVT prophylaxis: Lovenox 40 mg SQ twice daily due to higher risk of VTE in setting of COVID move to the [facility] Admission and Anticipated Discharge Date Admission Date: July 01, 2020 Subjective moved to 207 yesterday due to confusion and removing oxygen more compliant here, but he was placed on high flow 40L and 100% FiO2 needed to lay prone this morning, saturations mid to high 80's on his back, 92- 93% prone he needs a lot of encouragement and reminders to be compliant patient admits to feeling short of breath when on his back and saturations in 80s says he feels better on his stomach, but does not know how he can breathe with the tubing in his nose I assured him that the tubing is delivering 100% oxygen, it might be uncomfortable but it is what he needs he asked if this is normal, he has been here a week and he is getting worse I told him that this can be a typical course for someone with ARDS needs to hang in there, take it one day at a time Review of Systems Review of Systems: All systems reviewed & are unremarkable except as noted in Subjective Constitutional: + fatigue and + weakness; no fever Respiratory: + dyspnea and + dyspnea on exertion; no cough Cardiovascular: no chest pain Psychiatric: + anxiety Physical Exam Constitutional: well developed and comfortable; no acute distress Neck: trachea midline, no thyromegaly Respiratory: normal respiratory effort, lungs clear to auscultation Cardiovascular: RRR, no murmur, no edema Gastrointestinal (Abdomen): normal bowel sounds, soft, nontender, no hepatosplenomegaly Musculoskeletal: no cyanosis or clubbing, extremities motor strength 5/5 Skin: no rashes, warm and dry Neurologic: patellar DTR's 2+ bilat, sensation intact and PERRL, EOMI, acc ommodation nl, no face palsy, no dysarthria Psychiatric: Orientation: alert, oriented x 3 and + guarded Affect: + anxio us affect Lymphatic: no cervical or axillary lymphadenopathy Results & Data Results & Data ([facility]) Vital Signs (Past 12 Hours) Vital Signs Temp Pulse Pulse Pulse Resp BP BP 07/08/20 08:02 70 18 07/08/20 07:33 36.9 C 64 18 110/60 07/08/20 04:18 36.6 C 65 18 100/63 07/08/20 03:25 61 18 07/08/20 01:13 56 L 16 07/08/20 00:26 50 L 07/07/20 23:32 37.0 C 60 22 128/83 Pulse Ox 07/08/20 08:02 93 07/08/20 07:33 95 07/08/20 04:18 88 L 07/08/20 03:25 94 07/08/20 01:13 91 07/08/20 00:26 07/07/20 23:32 89 L Medications Administered Current Inpatient Medications Acetaminophen (Acetaminophen 325 Mg Tab) 650 mg PO Q4H PRN PRN Reason: Pain or Fever Stop: 07/31/20 17:05 Last Admin: 07/06/20 20:01 Dose: 650 mg Documented by: Albuterol (Albuterol Hfa 8 Gm Inhaler) 2 puffs INH Q4 PRN PRN Reason: Shortness Of Breath Or Wheezing Stop: 08/01/20 11:19 Last Admin: 07/03/20 18:16 Dose: 2 puffs Documented by: Ascorbic Acid (Ascorbic Acid 500 Mg Tab) 1,000 mg PO DAILY [facility] Stop: 08/01/20 08:59 Last Admin: 07/08/20 08:35 Dose: 1,000 mg Documented by: Buspirone HCl (Buspirone 5 Mg Tab) 5 mg PO TID PRN PRN Reason: Anxiety Stop: 08/05/20 20:59 Last Admin: 07/06/20 20:01 Dose: 5 mg Documented by: Enoxaparin Sodium (Enoxaparin Inj 40 Mg/0.4 Ml Syr) 40 mg SQ Q12H [facility] Stop: 07/31/20 20:59 Last Admin: 07/08/20 08:33 Dose: 40 mg Documented by: Famotidine (Famotidine 20 Mg Tab) 20 mg PO BID [facility] Stop: 08/01/20 16:59 Last Admin: 07/08/20 08:35 Dose: 20 mg Documented by: Fluticasone/Vilanterol (Fluticasone/Vilanterol 200/25mcg 14 Puffs/Inhaler) 1 puffs INH DAILY [facility] Stop: 08/01/20 08:59 Last Admin: 07/08/20 08:31 Dose: 1 puffs Documented by: Guaifenesin (Guaifenesin 600 Mg Tabcr) 1,200 mg PO Q12 [facility] Stop: 08/05/20 20:59 Last Admin: 07/08/20 08:34 Dose: 1,200 mg Documented by: Guaifenesin/Dextromethorphan (Guaifenesin/Dextrom Syrup 100mg/10mg 5ml Udc) 5 ml PO Q6H PRN PRN Reason: Cough Stop: 07/31/20 17:05 Dexamethasone Sodium Phosphate (6 mg/ Syringe) 1.5 mls @ 1 mls/min IV QAM [facility] Stop: 08/01/20 08:59 Last Admin: 07/08/20 08:31 Dose: 1 mls/min Documented by: Ceftriaxone Sodium 2,000 mg/ (Dextrose) 70 mls @ 100 mls/hr IV Q24H [facility]; Protocol Stop: 07/09/20 16:59 Last Infusion: 07/07/20 17:28 Dose: Infused Documented by: Doxycycline Hyclate 100 mg/ (Dextrose) 110 mls @ 50 mls/hr IV Q12H [facility]; Protocol Stop: 07/09/20 17:59 Last Admin: 07/08/20 06:38 Dose: 55 mls/hr Documented by: Lorazepam (Ativan) 0.5 mg in 1 mls @ 1 mls/min IV Q8 PRN PRN Reason: Anxiety/Agitation Stop: 08/07/20 08:46 Melatonin (Melatonin 3 Mg Tab) 3 mg PO HS [facility] Stop: 08/02/20 20:59 Last Admin: 07/07/20 23:14 Dose: 3 mg Documented by: Montelukast Sodium (Montelukast Sodium 10 Mg Tablet) 10 mg PO DAILY [facility] Stop: 08/01/20 08:59 Last Admin: 07/08/20 08:35 Dose: 10 mg Documented by: Mydayis 37.5mg Er Cap: Non-Formulary Patient's Own Med 1 ea PO DAILY [facility] Stop: 08/01/20 08:59 Last Admin: 07/07/20 08:27 Dose: 37.5 mg Documented by: Nystatin (Nystatin Susp 500,000 U/5 Ml Udc) 5 ml PO QID [facility] Stop: 07/14/20 16:59 Last Admin: 07/08/20 08:35 Dose: 5 ml Documented by: Ondansetron HCl (Ondansetron Inj 2 Mg/Ml 2 Ml Vial) 4 mg IV Q6H PRN PRN Reason: Nausea Stop: 07/31/20 17:05 Last Admin: 07/02/20 08:20 Dose: 4 mg Documented by: Vitamin D (Cholecalciferol 1,000 Units 25 Mcg Tab) 5,000 units PO DAILY [facility] Stop: 08/01/20 08:59 Last Admin: 07/08/20 08:35 Dose: 5,000 units Documented by: Zinc Sulfate (Zinc Sulfate 220 Mg Capsule) 220 mg PO DAILY [facility] Stop: 08/01/20 08:59 Last Admin: 07/08/20 08:35 Dose: 220 mg Documented by: PG Care Time/CCT Total # of Minutes Spent Total Time Spent: 35 Total Time Spent with Patient: Total time spent is greater than 50% in coordination of care (as documented) at patient's floor/unit and/or counseling patient: Coding Level of Care Code 51358 Subseq Hosp Care Lvl 3 Diagnoses Acute respiratory failure with hypoxia J96.01 Pneumonia due to COVID-19 virus U07.1; J12.82 ARDS (adult respiratory distress syndrome) J80 Elevated LFTs R79.89 Hyponatremia E87.1 Anxiety F41.9 Insomnia G47.00 Insomnia type: unspecified Candidiasis of mouth and esophagus B37.81; B37.0 ADHD F90.9 Attention deficit-hyperactivity disorder type: unspecified RBBB I45.10 DVT prophylaxis Z29.9 (1) Insomnia Insomnia type: unspecified Qualified Code(s): G47.00 - Insomnia, unspecified (2) ADHD Attention deficit-hyperactivity disorder type: unspecified Qualified Code(s): F90.9 - Attention-deficit hyperactivity disorder, unspecified type
[2020-07-08] MEDS: LORazepam 0.5 MG/1 ML VIAL IV PRN ×2 (09:13→21:42)
[2020-07-08] MEDS: MYDAYIS PO SCH (10:45)
[2020-07-08] MEDS: cefTRIAXone SODIUM 2,000 MG in DEXTROSE 5% 50 ML IV SCH (16:21)
[2020-07-08] MEDS: MELATONIN 3 MG TAB PO SCH (21:42)
[2020-07-09] MEDS: DOXYCYCLINE HYCLATE 100 MG in DEXTROSE 5% 100 ML IV SCH (06:16)
[2020-07-09] MEDS: CHOLECALCIFEROL 1,000 UNITS 25 MCG TAB PO SCH (09:30)
[2020-07-09] MEDS: MONTELUKAST SODIUM 10 MG TABLET PO SCH (09:31)
[2020-07-09] MEDS: FAMOTIDINE 20 MG TAB PO SCH ×2 (09:31→19:44)
[2020-07-09] MEDS: guaiFENesin 600 MG TABCR PO SCH ×2 (09:32→19:43)
[2020-07-09] MEDS: ZINC SULFATE 220 MG CAPSULE PO SCH (09:32)
[2020-07-09] MEDS: ASCORBIC ACID 500 MG TAB PO SCH (09:32)
[2020-07-09] MEDS: ENOXAPARIN INJ 40 MG/0.4 ML SYR SQ SCH ×2 (09:33→19:41)
[2020-07-09] MEDS: NYSTATIN SUSP 500,000 U/5 ML UDC PO SCH ×4 (09:36→19:44)
[2020-07-09] MEDS: FLUTICASONE/VILANTEROL 200/25MCG 14 PUFFS/INHALER INH SCH (09:38)
[2020-07-09] MEDS: MYDAYIS PO SCH (09:40)
[2020-07-09] MEDS: DEXAMETHASONE SOD PHOSPHATE 6 MG in SYRINGE 0 ML IV SCH (09:40)
--- NOTE | 2020-07-09 14:43 | Hospitalist Progress Note ---
Date of Service July 09, 2020 Assessment & Plan (1) Acute respiratory failure with hypoxia: 2nd to extensive/severe COVID-19 pneumonia. developing ARDS with increased oxygen requirements placed on high flow, 40L and 100% FiO2 in the evening on 07/07 titrated down to 30L and 80% today, no longer needing to lay prone all the time at this time he seems to be improving Completed 5-day course of remdesivir. Day #9/10 of IV dexamethasone s/p plasma infusion 07/02/2020. 7 days of IV rocephin and IV doxycycline to cover for superimposed bacterial pneumonia, stopped 07/08 No evidence of complicating acute CHF, he is negative fluid balance for the admission (2) Pneumonia due to COVID-19 virus: CTA with no PE, just shows multifocal pneumonia Encouraged frequent self-proning, see above Completed 5-day remdesivir course. Continue IV dexamethasone. Day #9 of 10. s/p plasma. Cont lovenox BID for DVT proph. Patient recently prescribed Breo as outpatient recently - will continue. Continue vit D, vit C, and zinc supplementation. (3) ARDS (adult respiratory distress syndrome): 2nd to COVID-19 see above improving with less FiO3 and less flow needed today not needing to lay prone all the time try Ativan 0.5mg IV q8 to help him relax (4) Elevated LFTs: Likely secondary to Covid-19 infection. Resolved. (5) Hyponatremia: Lowest level was 130. /18: 134 Appears euvolemic on exam (6) Anxiety: give Ativan 0.5mg IV q8, help him relax if needed (7) Insomnia: Melatonin. Encouraged blinds up, OOB to chair if tolerated, etc. (8) Candidiasis of mouth and esophagus: vs severe dry mouth. Cont nystatin lola 5cc ac/hs swish/spit. Tongue looks good today (9) ADHD: Can continue Mydayis using home stock, if desired by patient. (10) RBBB: As seen on EKG. No ACS or cardiac symptoms at this time. Telemetry continues to be wnl. (11) DVT prophylaxis: Lovenox 40 mg SQ twice daily due to higher risk of VTE in setting of COVID keep on 2 east COVID until as long as he requires high flow Admission and Anticipated Discharge Date Admission Date: July 01, 2020 Subjective patient doing better today, down to 30L and 80% FiO2, breathing well sitting up eating well no labs today no fever, vitals stable no chest pain, minimal cough, has some dyspnea on exertion but none at rest no GI symptoms updated his over the phone Review of Systems Review of Systems: All systems reviewed & are unremarkable except as noted in Subjective Physical Exam Constitutional: well developed and comfortable; no acute distress Neck: trachea midline, no thyromegaly Respiratory: normal respiratory effort, lungs clear to auscultation Cardiovascular: RRR, no murmur, no edema Gastrointestinal (Abdomen): normal bowel sounds, soft, nontender, no hepatosplenomegaly Musculoskeletal: no cyanosis or clubbing, extremities motor strength 5/5 Skin: no rashes, warm and dry Neurologic: patellar DTR's 2+ bilat, sensation intact and PERRL, EOMI, accommodation nl, no face palsy, no dysarthria Psychiatric: Orientation: alert and oriented x 3 Lymphatic: no cervical or axillary lymphadenopathy Results & Data Results & Data ([facility]) Vital Signs (Past 12 Hours) Vital Signs Temp Pulse Resp BP BP Pulse Ox 07/09/20 11:31 36.9 C 75 24 124/76 92 07/09/20 11:11 85 18 91 07/09/20 08:02 76 20 92 07/09/20 07:31 37.5 C 81 19 94/58 L 93 07/09/20 03:50 37.4 C 83 24 113/71 89 L 07/09/20 03:26 71 20 93 Medications Administered Current Inpatient Medications Acetaminophen (Acetaminophen 325 Mg Tab) 650 mg PO Q4H PRN PRN Reason: Pain or Fever Stop: 07/31/20 17:05 Last Admin: 07/06/20 20:01 Dose: 650 mg Documented by: Albuterol (Albuterol Hfa 8 Gm Inhaler) 2 puffs INH Q4 PRN PRN Reason: Shortness Of Breath Or Wheezing Stop: 08/01/20 11:19 Last Admin: 07/03/20 18:16 Dose: 2 puffs Documented by: Ascorbic Acid (Ascorbic Acid 500 Mg Tab) 1,000 mg PO DAILY [facility] Stop: 08/01/20 08:59 Last Admin: 07/09/20 09:32 Dose: 1,000 mg Documented by: Buspirone HCl (Buspirone 5 Mg Tab) 5 mg PO TID PRN PRN Reason: Anxiety Stop: 08/05/20 20:59 Last Admin: 07/06/20 20:01 Dose: 5 mg Documented by: Enoxaparin Sodium (Enoxaparin Inj 40 Mg/0.4 Ml Syr) 40 mg SQ Q12H [facility] Stop: 07/31/20 20:59 Last Admin: 07/09/20 09:33 Dose: 40 mg Documented by: Famotidine (Famotidine 20 Mg Tab) 20 mg PO BID [facility] Stop: 08/01/20 16:59 Last Admin: 07/09/20 09:31 Dose: 20 mg Documented by: Fluticasone/Vilanterol (Fluticasone/Vilanterol 200/25mcg 14 Puffs/Inhaler) 1 puffs INH DAILY [facility] Stop: 08/01/20 08:59 Last Admin: 07/09/20 09:38 Dose: 1 puffs Documented by: Guaifenesin (Guaifenesin 600 Mg Tabcr) 1,200 mg PO Q12 [facility] Stop: 08/05/20 20:59 Last Admin: 07/09/20 09:32 Dose: 1,200 mg Documented by: Guaifenesin/Dextromethorphan (Guaifenesin/Dextrom Syrup 100mg/10mg 5ml Udc) 5 ml PO Q6H PRN PRN Reason: Cough Stop: 07/31/20 17:05 Dexamethasone Sodium Phosphate (6 mg/ Syringe) 1.5 mls @ 1 mls/min IV QAM [facility] Stop: 08/01/20 08:59 Last Admin: 07/09/20 09:40 Dose: 1 mls/min Documented by: Ceftriaxone Sodium 2,000 mg/ (Dextrose) 70 mls @ 100 mls/hr IV Q24H [facility]; Protocol Stop: 07/09/20 16:59 Last Infusion: 07/08/20 17:14 Dose: Infused Documented by: Doxycycline Hyclate 100 mg/ (Dextrose) 110 mls @ 50 mls/hr IV Q12H [facility]; Protocol Stop: 07/09/20 17:59 Last Infusion: 07/09/20 10:07 Dose: Infused Documented by: Lorazepam (Ativan) 0.5 mg in 1 mls @ 1 mls/min IV Q8H PRN PRN Reason: Anxiety/Agitation Stop: 08/07/20 08:46 Last Admin: 07/08/20 21:42 Dose: 1 mls/min Documented by: Melatonin (Melatonin 3 Mg Tab) 3 mg PO HS [facility] Stop: 08/02/20 20:59 Last Admin: 07/08/20 21:42 Dose: 3 mg Documented by: Montelukast Sodium (Montelukast Sodium 10 Mg Tablet) 10 mg PO DAILY [facility] Stop: 08/01/20 08:59 Last Admin: 07/09/20 09:31 Dose: 10 mg Documented by: Mydayis 37.5mg Er Cap: Non-Formulary Patient's Own Med 1 ea PO DAILY [facility] Stop: 08/01/20 08:59 Last Admin: 07/09/20 09:40 Dose: Not Given Documented by: Nystatin (Nystatin Susp 500,000 U/5 Ml Udc) 5 ml PO QID [facility] Stop: 07/14/20 16:59 Last Admin: 07/09/20 12:16 Dose: 5 ml Documented by: Ondansetron HCl (Ondansetron Inj 2 Mg/Ml 2 Ml Vial) 4 mg IV Q6H PRN PRN Reason: Nausea Stop: 07/31/20 17:05 Last Admin: 07/02/20 08:20 Dose: 4 mg Documented by: Vitamin D (Cholecalciferol 1,000 Units 25 Mcg Tab) 5,000 units PO DAILY [facility] Stop: 08/01/20 08:59 Last Admin: 07/09/20 09:30 Dose: 5,000 units Documented by: Zinc Sulfate (Zinc Sulfate 220 Mg Capsule) 220 mg PO DAILY [facility] Stop: 08/01/20 08:59 Last Admin: 07/09/20 09:32 Dose: 220 mg Documented by: PG Care Time/CCT Total # of Minutes Spent Total Time Spent with Patient: Total time spent is greater than 50% in coordination of care (as documented) at patient's floor/unit and/or counseling patient: Coding Level of Care Code 64840 Subseq Hosp Care Lvl 3 Diagnoses Acute respiratory failure with hypoxia J96.01 Pneumonia due to COVID-19 virus U07.1; J12.82 ARDS (adult respiratory distress syndrome) J80 Elevated LFTs R79.89 Hyponatremia E87.1 Anxiety F41.9 Insomnia G47.00 Insomnia type: unspecified Candidiasis of mouth and esophagus B37.81; B37.0 ADHD F90.9 Attention deficit-hyperactivity disorder type: unspecified RBBB I45.10 DVT prophylaxis Z29.9 (1) Insomnia Insomnia type: unspecified Qualified Code(s): G47.00 - Insomnia, unspecified (2) ADHD Attention deficit-hyperactivity disorder type: unspecified Qualified Code(s): F90.9 - Attention-deficit hyperactivity disorder, unspecified type
[2020-07-09] MEDS: MELATONIN 3 MG TAB PO SCH (20:48)
[2020-07-10 06:48] LABS: Creatinine Clr Calc Pharmacy 102.6 ml/min; Est GFR (African American) 88.6; Est GFR (Non-African American) 76.5
[2020-07-10] MEDS: MYDAYIS PO SCH (09:45)
[2020-07-10] MEDS: DEXAMETHASONE SOD PHOSPHATE 6 MG in SYRINGE 0 ML IV SCH (09:46)
[2020-07-10] MEDS: FLUTICASONE/VILANTEROL 200/25MCG 14 PUFFS/INHALER INH SCH (09:46)
[2020-07-10] MEDS: FAMOTIDINE 20 MG TAB PO SCH ×2 (09:47→20:07)
[2020-07-10] MEDS: MONTELUKAST SODIUM 10 MG TABLET PO SCH (09:47)
[2020-07-10] MEDS: CHOLECALCIFEROL 1,000 UNITS 25 MCG TAB PO SCH (09:47)
[2020-07-10] MEDS: ZINC SULFATE 220 MG CAPSULE PO SCH (09:47)
[2020-07-10] MEDS: guaiFENesin 600 MG TABCR PO SCH ×2 (09:47→20:07)
[2020-07-10] MEDS: NYSTATIN SUSP 500,000 U/5 ML UDC PO SCH ×4 (09:47→20:01)
[2020-07-10] MEDS: ENOXAPARIN INJ 40 MG/0.4 ML SYR SQ SCH ×2 (09:48→20:07)
[2020-07-10] MEDS: ASCORBIC ACID 500 MG TAB PO SCH (09:48)
--- NOTE | 2020-07-10 11:54 | Hospitalist Progress Note ---
Date of Service July 10, 2020 Assessment & Plan (1) Acute respiratory failure with hypoxia: 2nd to extensive/severe COVID-19 pneumonia. developing ARDS with increased oxygen requirements placed on high flow, 40L and 100% FiO2 in the evening on 07/07 titrated down to 30L and 75% today, no longer needing to lay prone all the time at this time he seems to be improving, more active, got OOB to chair and he did exercises with therapy Completed 5-day course of remdesivir. Day #10 of IV dexamethasone, will continue a little longer since he is on High Flow s/p plasma infusion 07/02/2020. 7 days of IV rocephin and IV doxycycline to cover for superimposed bacterial pneumonia, stopped 07/08 No evidence of complicating acute CHF, he is negative fluid balance for the admission (2) Pneumonia due to COVID-19 virus: CTA with no PE, just shows multifocal pneumonia Encouraged frequent self-proning, see above Completed 5-day remdesivir course. Continue IV dexamethasone. Day #10 s/p plasma. Cont lovenox BID for DVT proph. Patient recently prescribed Breo as outpatient recently - will continue. Continue vit D, vit C, and zinc supplementation. (3) ARDS (adult respiratory distress syndrome): 2nd to COVID-19 see above improving with less FiO2 and less flow needed today not needing to lay prone all the time (4) Elevated LFTs: Likely secondary to Covid-19 infection. Resolved. (5) Hyponatremia: Lowest level was 130. 1/18: 134 Appears euvolemic on exam (6) Anxiety: give Ativan 0.5mg IV q8, help him relax if needed (7) Insomnia: Melatonin. Encouraged blinds up, OOB to chair if tolerated, etc. (8) Candidiasis of mouth and esophagus: stop Nystatin Tongue looks good today (9) ADHD: Can continue Mydayis using home stock, if desired by patient. (10) RBBB: As seen on EKG. No ACS or cardiac symptoms at this time. Telemetry continues to be wnl. (11) DVT prophylaxis: Lovenox 40 mg SQ twice daily due to higher risk of VTE in setting of COVID keep on 2 east COVID until as long as he requires high flow Admission and Anticipated Discharge Date Admission Date: July 01, 2020 Subjective patient doing well, on 30L and 75% FiO2, saturations 90-91%, no distress he sat in a chair to eat, did some exercises with therapy in the bed he is moving his bowels, making urine he is eating really well no fever, no chest pain, no cough has some dyspnea at rest and definitely on exertion overall improving Review of Systems Review of Systems: All systems reviewed & are unremarkable except as noted in Subjective Physical Exam Constitutional: well developed and comfortable; no acute distress Neck: trachea midline, no thyromegaly Respiratory: normal respiratory effort, lungs clear to auscultation Cardiovascular: RRR, no murmur, no edema Gastrointestinal (Abdomen): normal bowel sounds, soft, nontender, no hepatosplenomegaly Musculoskeletal: no cyanosis or clubbing, extremities motor strength 5/5 Skin: no rashes, warm and dry Neurologic: patellar DTR's 2+ bilat, sensation intact and PERRL, EOMI, accommodation nl, no face palsy, no dysarthria Psychiatric: Orientation: alert and oriented x 3 Affect: + anxious affect Lymphatic: no cervical or axillary lymphadenopathy Results & Data Results & Data ([facility]) Vital Signs (Past 12 Hours) Vital Signs Temp Pulse Pulse Pulse Resp BP BP 07/10/20 11:25 70 24 07/10/20 11:16 37.0 C 70 22 120/71 07/10/20 09:00 46 L 07/10/20 07:33 37.0 C 65 27 H 113/75 07/10/20 07:10 56 L 20 07/10/20 03:35 37.0 C 53 L 19 109/60 07/10/20 03:30 75 57 L 18 Pulse Ox 07/10/20 11:25 91 07/10/20 11:16 90 07/10/20 09:00 07/10/20 07:33 94 07/10/20 07:10 95 07/10/20 03:35 95 07/10/20 03:30 93 Laboratory Results Laboratory Results - last 24 hr 07/10/20 05:54 Creatinine 1.11 Est Cr Clr Drug Dosing 102.6 Est GFR ( Amer) 88.6 Est GFR (Non-Af Amer) 76.5 Medications Administered Current Inpatient Medications Acetaminophen (Acetaminophen 325 Mg Tab) 650 mg PO Q4H PRN PRN Reason: Pain or Fever Stop: 07/31/20 17:05 Last Admin: 07/06/20 20:01 Dose: 650 mg Documented by: Albuterol (Albuterol Hfa 8 Gm Inhaler) 2 puffs INH Q4 PRN PRN Reason: Shortness Of Breath Or Wheezing Stop: 08/01/20 11:19 Last Admin: 07/03/20 18:16 Dose: 2 puffs Documented by: Ascorbic Acid (Ascorbic Acid 500 Mg Tab) 1,000 mg PO DAILY [facility] Stop: 08/01/20 08:59 Last Admin: 07/10/20 09:48 Dose: 1,000 mg Documented by: Buspirone HCl (Buspirone 5 Mg Tab) 5 mg PO TID PRN PRN Reason: Anxiety Stop: 08/05/20 20:59 Last Admin: 07/06/20 20:01 Dose: 5 mg Documented by: Enoxaparin Sodium (Enoxaparin Inj 40 Mg/0.4 Ml Syr) 40 mg SQ Q12H [facility] Stop: 07/31/20 20:59 Last Admin: 07/10/20 09:48 Dose: 40 mg Documented by: Famotidine (Famotidine 20 Mg Tab) 20 mg PO BID [facility] Stop: 08/01/20 16:59 Last Admin: 07/10/20 09:47 Dose: 20 mg Documented by: Fluticasone/Vilanterol (Fluticasone/Vilanterol 200/25mcg 14 Puffs/Inhaler) 1 puffs INH DAILY [facility] Stop: 08/01/20 08:59 Last Admin: 07/10/20 09:46 Dose: 1 puffs Documented by: Guaifenesin (Guaifenesin 600 Mg Tabcr) 1,200 mg PO Q12 [facility] Stop: 08/05/20 20:59 Last Admin: 07/10/20 09:47 Dose: 1,200 mg Documented by: Guaifenesin/Dextromethorphan (Guaifenesin/Dextrom Syrup 100mg/10mg 5ml Udc) 5 ml PO Q6H PRN PRN Reason: Cough Stop: 07/31/20 17:05 Dexamethasone Sodium Phosphate (6 mg/ Syringe) 1.5 mls @ 1 mls/min IV QAM [facility] Stop: 08/01/20 08:59 Last Admin: 07/10/20 09:46 Dose: 1 mls/min Documented by: Lorazepam (Ativan) 0.5 mg in 1 mls @ 1 mls/min IV Q8H PRN PRN Reason: Anxiety/Agitation Stop: 08/07/20 08:46 Last Admin: 07/08/20 21:42 Dose: 1 mls/min Documented by: Melatonin (Melatonin 3 Mg Tab) 3 mg PO HS [facility] Stop: 08/02/20 20:59 Last Admin: 07/09/20 20:48 Dose: 3 mg Documented by: Montelukast Sodium (Montelukast Sodium 10 Mg Tablet) 10 mg PO DAILY [facility] Stop: 08/01/20 08:59 Last Admin: 07/10/20 09:47 Dose: 10 mg Documented by: Mydayis 37.5mg Er Cap: Non-Formulary Patient's Own Med 1 ea PO DAILY [facility]; Protocol Stop: 08/01/20 08:59 Last Admin: 07/10/20 09:45 Dose: 37.5 mg Documented by: Nystatin (Nystatin Susp 500,000 U/5 Ml Udc) 5 ml PO QID [facility] Stop: 07/14/20 16:59 Last Admin: 07/10/20 09:47 Dose: 5 ml Documented by: Ondansetron HCl (Ondansetron Inj 2 Mg/Ml 2 Ml Vial) 4 mg IV Q6H PRN PRN Reason: Nausea Stop: 07/31/20 17:05 Last Admin: 07/02/20 08:20 Dose: 4 mg Documented by: Vitamin D (Cholecalciferol 1,000 Units 25 Mcg Tab) 5,000 units PO DAILY [facility] Stop: 08/01/20 08:59 Last Admin: 07/10/20 09:47 Dose: 5,000 units Documented by: Zinc Sulfate (Zinc Sulfate 220 Mg Capsule) 220 mg PO DAILY [facility] Stop: 08/01/20 08:59 Last Admin: 07/10/20 09:47 Dose: 220 mg Documented by: PG Care Time/CCT Total # of Minutes Spent Total Time Spent with Patient: Total time spent is greater than 50% in coordination of care (as documented) at patient's floor/unit and/or counseling patient: Coding Level of Care Code 87989 Subseq Hosp Care Lvl 2 Diagnoses Acute respiratory failure with hypoxia J96.01 Pneumonia due to COVID-19 virus U07.1; J12.82 ARDS (adult respiratory distress syndrome) J80 Elevated LFTs R79.89 Hyponatremia E87.1 Anxiety F41.9 Insomnia G47.00 Insomnia type: unspecified Candidiasis of mouth and esophagus B37.81; B37.0 ADHD F90.9 Attention deficit-hyperactivity disorder type: unspecified RBBB I45.10 DVT prophylaxis Z29.9 (1) Insomnia Insomnia type: unspecified Qualified Code(s): G47.00 - Insomnia, unspecified (2) ADHD Attention deficit-hyperactivity disorder type: unspecified Qualified Code(s): F90.9 - Attention-deficit hyperactivity disorder, unspecified type
[2020-07-10] MEDS: LORazepam 0.5 MG/1 ML VIAL IV PRN (22:30)
[2020-07-10] MEDS: MELATONIN 3 MG TAB PO SCH (22:30)
[2020-07-11] MEDS: ASCORBIC ACID 500 MG TAB PO SCH (08:24)
[2020-07-11] MEDS: ZINC SULFATE 220 MG CAPSULE PO SCH (08:24)
[2020-07-11] MEDS: MONTELUKAST SODIUM 10 MG TABLET PO SCH (08:24)
[2020-07-11] MEDS: FAMOTIDINE 20 MG TAB PO SCH ×2 (08:24→21:37)
[2020-07-11] MEDS: NYSTATIN SUSP 500,000 U/5 ML UDC PO SCH (08:24)
[2020-07-11] MEDS: guaiFENesin 600 MG TABCR PO SCH ×2 (08:24→21:37)
[2020-07-11] MEDS: ENOXAPARIN INJ 40 MG/0.4 ML SYR SQ SCH ×2 (08:24→21:38)
[2020-07-11] MEDS: CHOLECALCIFEROL 1,000 UNITS 25 MCG TAB PO SCH (08:24)
[2020-07-11] MEDS: FLUTICASONE/VILANTEROL 200/25MCG 14 PUFFS/INHALER INH SCH (08:25)
[2020-07-11] MEDS: DEXAMETHASONE SOD PHOSPHATE 6 MG in SYRINGE 0 ML IV SCH (08:25)
[2020-07-11] MEDS: MYDAYIS PO SCH (09:10)
--- NOTE | 2020-07-11 09:57 | Hospitalist Progress Note ---
Date of Service July 11, 2020 Assessment & Plan (1) Acute respiratory failure with hypoxia: 2nd to extensive/severe COVID-19 pneumonia. developing ARDS with increased oxygen requirements placed on high flow, 40L and 100% FiO2 in the evening on 07/07 titrated down to 30L and 60% today, no longer needing to lay prone hope to get off high flow in the next 1-2 days at this time he seems to be improving, more active, got OOB to chair and he did exercises with therapy Completed 5-day course of remdesivir. Day #11 of IV dexamethasone, will continue a little longer since he is on High Flow s/p plasma infusion 07/02/2020. 7 days of IV rocephin and IV doxycycline to cover for superimposed bacterial pneumonia, stopped 07/08 No evidence of complicating acute CHF, he is negative fluid balance for the admission (2) Pneumonia due to COVID-19 virus: CTA with no PE, just shows multifocal pneumonia Encouraged frequent self-proning, see above he can now lay supine and sit up all the time, saturations stable Completed 5-day remdesivir course. Continue IV dexamethasone. Day #11 s/p plasma. Cont lovenox BID for DVT proph. Patient recently prescribed Breo as outpatient recently - will continue. Continue vit D, vit C, and zinc supplementation. (3) ARDS (adult respiratory distress syndrome): 2nd to COVID-19 see above improving with less FiO2 and less flow needed today, 30L and 60% FiO2 not needing to lay prone at all (4) Elevated LFTs: Likely secondary to Covid-19 infection. Resolved. (5) Hyponatremia: Lowest level was 130. 1/: 134 Appears euvolemic on exam (6) Anxiety: give Ativan 0.5mg IV q8, help him relax if needed no longer requiring this (7) Insomnia: Melatonin. Encouraged blinds up, OOB to chair if tolerated, etc. (8) Candidiasis of mouth and esophagus: stop Nystatin Tongue looks good today (9) ADHD: Can continue Mydayis using home stock, if desired by patient. (10) RBBB: As seen on EKG. No ACS or cardiac symptoms at this time. Telemetry continues to be wnl. (11) DVT prophylaxis: Lovenox 40 mg SQ twice daily due to higher risk of VTE in setting of COVID keep on 2 east COVID until as long as he requires high flow Admission and Anticipated Discharge Date Admission Date: July 01, 2020 Subjective patient titrated down to 30L and 60%, saturations 90s eating and drinking well, no labs today no fever, vitals stable encouraged him to get OOB to chair twice a day, increase activity he is happy because he feels like the COVID "fog" he was experiencing is gone he was able to watch a movie last night, he sent a detailed text to friends letting them know he was okay told him that I am hopeful to get him off high flow in the next 1-2 days Review of Systems Review of Systems: All systems reviewed & are unremarkable except as noted in Subjective Physical Exam Constitutional: well developed and comfortable; no acute distress Neck: trachea midline, no thyromegaly Respiratory: normal respiratory effort, lungs clear to auscultation Cardiovascular: RRR, no murmur, no edema Gastrointestinal (Abdomen): normal bowel sounds, soft, nontender, no hepatosplenomegaly Musculoskeletal: no cyanosis or clubbing, extremities motor strength 5/5 Skin: no rashes, warm and dry Neurologic: patellar DTR's 2+ bilat, sensation intact and PERRL, EOMI, accommodation nl, no face palsy, no dysarthria Psychiatric: Orientation: alert and oriented x 3 Lymphatic: no cervical or axillary lymphadenopathy Results & Data Results & Data ([facility]) Vital Signs (Past 12 Hours) Vital Signs Temp Pulse Pulse Resp BP BP Pulse Ox 07/11/20 07:47 36.9 C 88 16 106/72 96 07/11/20 07:25 73 18 95 07/11/20 04:05 36.8 C 66 25 H 115/84 93 07/11/20 03:55 62 24 91 07/10/20 22:35 63 18 95 07/10/20 22:31 55 L 22 123/78 95 Medications Administered Current Inpatient Medications Acetaminophen (Acetaminophen 325 Mg Tab) 650 mg PO Q4H PRN PRN Reason: Pain or Fever Stop: 07/31/20 17:05 Last Admin: 07/06/20 20:01 Dose: 650 mg Documented by: Albuterol (Albuterol Hfa 8 Gm Inhaler) 2 puffs INH Q4 PRN PRN Reason: Shortness Of Breath Or Wheezing Stop: 08/01/20 11:19 Last Admin: 07/03/20 18:16 Dose: 2 puffs Documented by: Ascorbic Acid (Ascorbic Acid 500 Mg Tab) 1,000 mg PO DAILY KRYSTINA Stop: 08/01/20 08:59 Last Admin: 07/11/20 08:24 Dose: 1,000 mg Documented by: Buspirone HCl (Buspirone 5 Mg Tab) 5 mg PO TID PRN PRN Reason: Anxiety Stop: 08/05/20 20:59 Last Admin: 07/06/20 20:01 Dose: 5 mg Documented by: Enoxaparin Sodium (Enoxaparin Inj 40 Mg/0.4 Ml Syr) 40 mg SQ Q12H KRYSTINA Stop: 07/31/20 20:59 Last Admin: 07/11/20 08:24 Dose: 40 mg Documented by: Famotidine (Famotidine 20 Mg Tab) 20 mg PO BID KRYSTINA Stop: 08/01/20 16:59 Last Admin: 07/11/20 08:24 Dose: 20 mg Documented by: Fluticasone/Vilanterol (Fluticasone/Vilanterol 200/25mcg 14 Puffs/Inhaler) 1 puffs INH DAILY KRYSTINA Stop: 08/01/20 08:59 Last Admin: 07/11/20 08:25 Dose: 1 puffs Documented by: Guaifenesin (Guaifenesin 600 Mg Tabcr) 1,200 mg PO Q12 KRYSTINA Stop: 08/05/20 20:59 Last Admin: 07/11/20 08:24 Dose: 1,200 mg Documented by: Guaifenesin/Dextromethorphan (Guaifenesin/Dextrom Syrup 100mg/10mg 5ml Udc) 5 ml PO Q6H PRN PRN Reason: Cough Stop: 07/31/20 17:05 Dexamethasone Sodium Phosphate (6 mg/ Syringe) 1.5 mls @ 1 mls/min IV QAM KRYSTINA Stop: 08/01/20 08:59 Last Admin: 07/11/20 08:25 Dose: 1 mls/min Documented by: Lorazepam (Ativan) 0.5 mg in 1 mls @ 1 mls/min IV Q8H PRN PRN Reason: Anxiety/Agitation Stop: 08/07/20 08:46 Last Admin: 07/10/20 22:30 Dose: 1 mls/min Documented by: Melatonin (Melatonin 3 Mg Tab) 3 mg PO HS [facility] Stop: 08/02/20 20:59 Last Admin: 07/10/20 22:30 Dose: 3 mg Documented by: Montelukast Sodium (Montelukast Sodium 10 Mg Tablet) 10 mg PO DAILY KRYSTINA Stop: 08/01/20 08:59 Last Admin: 07/11/20 08:24 Dose: 10 mg Documented by: Mydayis 37.5mg Er Cap: Non-Formulary Patient's Own Med 1 ea PO DAILY [facility]; Protocol Stop: 08/01/20 08:59 Last Admin: 07/11/20 09:10 Dose: 37.5 mg Documented by: Nystatin (Nystatin Susp 500,000 U/5 Ml Udc) 5 ml PO QID [facility] Stop: 07/14/20 16:59 Last Admin: 07/11/20 08:24 Dose: 5 ml Documented by: Ondansetron HCl (Ondansetron Inj 2 Mg/Ml 2 Ml Vial) 4 mg IV Q6H PRN PRN Reason: Nausea Stop: 07/31/20 17:05 Last Admin: 07/02/20 08:20 Dose: 4 mg Documented by: Vitamin D (Cholecalciferol 1,000 Units 25 Mcg Tab) 5,000 units PO DAILY [facility] Stop: 08/01/20 08:59 Last Admin: 07/11/20 08:24 Dose: 5,000 units Documented by: Zinc Sulfate (Zinc Sulfate 220 Mg Capsule) 220 mg PO DAILY [facility] Stop: 08/01/20 08:59 Last Admin: 07/11/20 08:24 Dose: 220 mg Documented by: PG Care Time/CCT Total # of Minutes Spent Total Time Spent with Patient: Total time spent is greater than 50% in coordination of care (as documented) at patient's floor/unit and/or counseling patient: Coding Level of Care Code 54638 Subseq Hosp Care Lvl 2 Diagnoses Acute respiratory failure with hypoxia J96.01 Pneumonia due to COVID-19 virus U07.1; J12.82 ARDS (adult respiratory distress syndrome) J80 Elevated LFTs R79.89 Hyponatremia E87.1 Anxiety F41.9 Insomnia G47.00 Insomnia type: unspecified Candidiasis of mouth and esophagus B37.81; B37.0 ADHD F90.9 Attention deficit-hyperactivity disorder type: unspecified RBBB I45.10 DVT prophylaxis Z29.9 (1) Insomnia Insomnia type: unspecified Qualified Code(s): G47.00 - Insomnia, unspecified (2) ADHD Attention deficit-hyperactivity disorder type: unspecified Qualified Code(s): F90.9 - Attention-deficit hyperactivity disorder, unspecified type
[2020-07-11] MEDS: MELATONIN 3 MG TAB PO SCH (21:37)
[2020-07-12] MEDS: LORazepam 0.5 MG/1 ML VIAL IV PRN ×2 (00:13→23:01)
[2020-07-12] MEDS: guaiFENesin 600 MG TABCR PO SCH ×2 (08:31→21:08)
[2020-07-12] MEDS: FAMOTIDINE 20 MG TAB PO SCH ×2 (08:31→21:08)
[2020-07-12] MEDS: FLUTICASONE/VILANTEROL 200/25MCG 14 PUFFS/INHALER INH SCH (08:32)
[2020-07-12] MEDS: ASCORBIC ACID 500 MG TAB PO SCH (08:32)
[2020-07-12] MEDS: ENOXAPARIN INJ 40 MG/0.4 ML SYR SQ SCH ×2 (08:32→21:08)
[2020-07-12] MEDS: MONTELUKAST SODIUM 10 MG TABLET PO SCH (08:32)
[2020-07-12] MEDS: CHOLECALCIFEROL 1,000 UNITS 25 MCG TAB PO SCH (08:32)
[2020-07-12] MEDS: ZINC SULFATE 220 MG CAPSULE PO SCH (08:32)
[2020-07-12] MEDS ORDERED: dexAMETHasone 4 MG TAB PO SCH (09:00)
--- NOTE | 2020-07-12 09:51 | Hospitalist Progress Note ---
Date of Service July 12, 2020 Assessment & Plan (1) Acute respiratory failure with hypoxia: 2nd to extensive/severe COVID-19 pneumonia. developing ARDS with increased oxygen requirements placed on high flow, 40L and 100% FiO2 in the evening on 07/07 titrated down to wall high flow today, 8-10L, no distress, sats 97% rapidly improving, he is quite pleased Completed 5-day course of remdesivir. Day #12 of IV dexamethasone, will stop today since he is doing so well s/p plasma infusion 07/02/2020. 7 days of IV rocephin and IV doxycycline to cover for superimposed bacterial pneumonia, stopped 07/08 No evidence of complicating acute CHF, he is negative fluid balance for the admission (2) Pneumonia due to COVID-19 virus: CTA with no PE, just shows multifocal pneumonia Encouraged frequent self-proning, see above he can now lay supine and sit up all the time, saturations stable Completed 5-day remdesivir course. Continue IV dexamethasone. Day #12 -- stop today s/p plasma. Cont lovenox BID for DVT proph. Patient recently prescribed Breo as outpatient recently - will continue. Continue vit D, vit C, and zinc supplementation. (3) ARDS (adult respiratory distress syndrome): 2nd to COVID-19 see above improving with less FiO2 and less flow needed today, 30L and 60% FiO2 not needing to lay prone at all (4) Elevated LFTs: Likely secondary to Covid-19 infection. Resolved. (5) Hyponatremia: Lowest level was 130. 07/07: 134 Appears euvolemic on exam (6) Anxiety: give Ativan 0.5mg IV q8, help him relax if needed no longer requiring this (7) Insomnia: Melatonin. Encouraged blinds up, OOB to chair if tolerated, etc. (8) Candidiasis of mouth and esophagus: resume Nystatin (9) ADHD: Can continue Mydayis using home stock, if desired by patient. (10) RBBB: As seen on EKG. No ACS or cardiac symptoms at this time. Telemetry continues to be wnl. (11) DVT prophylaxis: Lovenox 40 mg SQ twice daily due to higher risk of VTE in setting of COVID keep on 2 east COVID today, can likely go upstairs tomorrow Admission and Anticipated Discharge Date Admission Date: July 01, 2020 Subjective patient is doing great, down to 10L wall high flow, 97%, turned him down to 8L and he stayed at 96% breathing well, no distress at all eating great, had a BM yesterday, making urine, no fever no labs today as he is stable discussed getting home, might be ready as early as Tuesday if he continues to come down off oxygen he is happy about this prospect he says his mouth is dry and cracked, the Nystatin was helping that, will order again Review of Systems Review of Systems: All systems reviewed & are unremarkable except as noted in Subjective Physical Exam Constitutional: well developed and comfortable; no acute distress Neck: trachea midline, no thyromegaly Respiratory: normal respiratory effort, lungs clear to auscultation Cardiovascular: RRR, no murmur, no edema Gastrointestinal (Abdomen): normal bowel sounds, soft, nontender, no hepatosplenomegaly Musculoskeletal: no cyanosis or clubbing, extremities motor strength 5/5 Skin: no rashes, warm and dry Neurologic: patellar DTR's 2+ bilat, sensation intact and PERRL, EOMI, accommodation nl, no face palsy, no dysarthria Psychiatric: Orientation: alert and oriented x 3 Lymphatic: no cervical or axillary lymphadenopathy Results & Data Results & Data ([facility]) Vital Signs (Past 12 Hours) Vital Signs Temp Pulse Resp BP BP Pulse Ox 07/12/20 07:53 57 L 22 96 07/12/20 07:42 36.8 C 66 20 122/73 96 07/12/20 05:00 36.7 C 69 18 116/77 98 07/11/20 23:58 36.8 C 75 20 128/83 94 Medications Administered Current Inpatient Medications Acetaminophen (Acetaminophen 325 Mg Tab) 650 mg PO Q4H PRN PRN Reason: Pain or Fever Stop: 07/31/20 17:05 Last Admin: 07/06/20 20:01 Dose: 650 mg Documented by: Albuterol (Albuterol Hfa 8 Gm Inhaler) 2 puffs INH Q4 PRN PRN Reason: Shortness Of Breath Or Wheezing Stop: 08/01/20 11:19 Last Admin: 07/03/20 18:16 Dose: 2 puffs Documented by: Ascorbic Acid (Ascorbic Acid 500 Mg Tab) 1,000 mg PO DAILY KRYSTINA Stop: 08/01/20 08:59 Last Admin: 07/12/20 08:32 Dose: 1,000 mg Documented by: Buspirone HCl (Buspirone 5 Mg Tab) 5 mg PO TID PRN PRN Reason: Anxiety Stop: 08/05/20 20:59 Last Admin: 07/06/20 20:01 Dose: 5 mg Documented by: Dexamethasone (Dexamethasone 4 Mg Tab) 4 mg PO QAM KRYSTINA Stop: 08/11/20 08:59 Last Admin: 07/12/20 08:32 Dose: 4 mg Documented by: Enoxaparin Sodium (Enoxaparin Inj 40 Mg/0.4 Ml Syr) 40 mg SQ Q12H KRYSTINA Stop: 07/31/20 20:59 Last Admin: 07/12/20 08:32 Dose: 40 mg Documented by: Famotidine (Famotidine 20 Mg Tab) 20 mg PO BID KRYSTINA Stop: 08/01/20 16:59 Last Admin: 07/12/20 08:31 Dose: 20 mg Documented by: Fluticasone/Vilanterol (Fluticasone/Vilanterol 200/25mcg 14 Puffs/Inhaler) 1 puffs INH DAILY KRYSTINA Stop: 08/01/20 08:59 Last Admin: 07/12/20 08:32 Dose: 1 puffs Documented by: Guaifenesin (Guaifenesin 600 Mg Tabcr) 1,200 mg PO Q12 KRYSTINA Stop: 08/05/20 20:59 Last Admin: 07/12/20 08:31 Dose: 1,200 mg Documented by: Guaifenesin/Dextromethorphan (Guaifenesin/Dextrom Syrup 100mg/10mg 5ml Udc) 5 ml PO Q6H PRN PRN Reason: Cough Stop: 07/31/20 17:05 Lorazepam (Ativan) 0.5 mg in 1 mls @ 1 mls/min IV Q8H PRN PRN Reason: Anxiety/Agitation Stop: 08/07/20 08:46 Last Admin: 07/12/20 00:13 Dose: 1 mls/min Documented by: Melatonin (Melatonin 3 Mg Tab) 3 mg PO HS KRYSTINA Stop: 08/02/20 20:59 Last Admin: 07/11/20 21:37 Dose: 3 mg Documented by: Montelukast Sodium (Montelukast Sodium 10 Mg Tablet) 10 mg PO DAILY [facility] Stop: 08/01/20 08:59 Last Admin: 07/12/20 08:32 Dose: 10 mg Documented by: Mydayis 37.5mg Er Cap: Non-Formulary Patient's Own Med 1 ea PO DAILY [facility]; Protocol Stop: 08/01/20 08:59 Last Admin: 07/11/20 09:10 Dose: 37.5 mg Documented by: Nystatin (Nystatin Susp 500,000 U/5 Ml Udc) 5 ml PO QID [facility] Stop: 07/22/20 12:59 Ondansetron HCl (Ondansetron Inj 2 Mg/Ml 2 Ml Vial) 4 mg IV Q6H PRN PRN Reason: Nausea Stop: 07/31/20 17:05 Last Admin: 07/02/20 08:20 Dose: 4 mg Documented by: Vitamin D (Cholecalciferol 1,000 Units 25 Mcg Tab) 5,000 units PO DAILY [facility] Stop: 08/01/20 08:59 Last Admin: 07/12/20 08:32 Dose: 5,000 units Documented by: Zinc Sulfate (Zinc Sulfate 220 Mg Capsule) 220 mg PO DAILY [facility] Stop: 08/01/20 08:59 Last Admin: 07/12/20 08:32 Dose: 220 mg Documented by: PG Care Time/CCT Total # of Minutes Spent Total Time Spent with Patient: Total time spent is greater than 50% in coordination of care (as documented) at patient's floor/unit and/or counseling patient: Coding Level of Care Code 34954 Subseq Hosp Care Lvl 2 Diagnoses Acute respiratory failure with hypoxia J96.01 Pneumonia due to COVID-19 virus U07.1; J12.82 ARDS (adult respiratory distress syndrome) J80 Elevated LFTs R79.89 Hyponatremia E87.1 Anxiety F41.9 Insomnia G47.00 Insomnia type: unspecified Candidiasis of mouth and esophagus B37.81; B37.0 ADHD F90.9 Attention deficit-hyperactivity disorder type: unspecified RBBB I45.10 DVT prophylaxis Z29.9 (1) Insomnia Insomnia type: unspecified Qualified Code(s): G47.00 - Insomnia, unspecified (2) ADHD Attention deficit-hyperactivity disorder type: unspecified Qualified Code(s): F90.9 - Attention-deficit hyperactivity disorder, unspecified type
[2020-07-12] MEDS: MYDAYIS PO SCH (10:23)
[2020-07-12] MEDS: NYSTATIN SUSP 500,000 U/5 ML UDC PO SCH ×3 (10:24→21:09)
[2020-07-12] MEDS: MELATONIN 3 MG TAB PO SCH (23:00)
[2020-07-13 06:57] LABS: Est GFR (African American) 104.3
[2020-07-13] MEDS: FLUTICASONE/VILANTEROL 200/25MCG 14 PUFFS/INHALER INH SCH (08:55)
[2020-07-13] MEDS: ENOXAPARIN INJ 40 MG/0.4 ML SYR SQ SCH (08:56)
[2020-07-13] MEDS: ASCORBIC ACID 500 MG TAB PO SCH (08:57)
[2020-07-13] MEDS: ZINC SULFATE 220 MG CAPSULE PO SCH (08:57)
[2020-07-13] MEDS: CHOLECALCIFEROL 1,000 UNITS 25 MCG TAB PO SCH (08:57)
[2020-07-13] MEDS: MYDAYIS PO SCH (08:58)
[2020-07-13] MEDS: NYSTATIN SUSP 500,000 U/5 ML UDC PO SCH ×2 (08:58→13:15)
[2020-07-13] MEDS: FAMOTIDINE 20 MG TAB PO SCH (08:58)
[2020-07-13] MEDS: guaiFENesin 600 MG TABCR PO SCH (08:58)
[2020-07-13] MEDS: MONTELUKAST SODIUM 10 MG TABLET PO SCH (08:58)
--- NOTE | 2020-07-13 16:11 | Discharge Summary ---
Date of Service July 13, 2020 Admission HPI Per Admitting Provider This patient is a 49-year-old male with no significant past medical history who presents to the ER for the second time in 2 days with worsening hypoxia at home and shortness of breath after being diagnosed with Covid-19 on 06/25. He contracted Covid-19 likely from his who returned from traveling to [facility]. He has had a productive cough and was seen in the ER yesterday and had a pulse ox of 94-95% on room air at rest but dropped to 85% with exertion and was sent home with supplemental O2 and a prescription for dexamethasone. He reports he returned today after worsening shortness of breath and pulse ox in the high 80s even on the oxygen at rest. He was taking the prescribed dexamethasone, as well as a Breo Ellipta inhaler and had completed a course of azithromycin that he was prescribed as an outpatient by his PCP. In the ER here today, he was on 4 L nasal cannula to maintain pulse ox of 94%. His CBC was within normal limits except for some mild lymphopenia, his chemistry was within normal limits, except for mild elevation of AST which was actually improved from yesterday. A D-dimer was negative. Urinalysis was negative. Chest x-ray showed no significant change of the bilateral pulmonary opacities suggestive of multifocal pneumonia when compared to chest x-ray from 06/30. Vitals revealed hypoxia and tachypnea, but no fever and he was hypertensive. He will be admitted for acute respiratory failure with hypoxia in the setting of Covid-19 pneumonia Principal Diagnosis COVID 19 pneumonia causing acute hypoxic respiratory failure Discharge Exam Constitutional well developed and comfortable; no acute distress Neck trachea midline, no thyromegaly Respiratory normal respiratory effort, lungs clear to auscultation Cardiovascular RRR, no murmur, no edema Gastrointestinal (Abdomen) normal bowel sounds, soft, nontender, no hepatosplenomegaly Musculoskeletal no cyanosis or clubbing, extremities motor strength 5/5 Skin no rashes, warm and dry Neurologic patellar DTR's 2+ bilat, sensation intact and PERRL, EOMI, accommodation nl, no face palsy, no dysarthria Psychiatric Orientation: alert and oriented x 3 Affect: + anxious affect Lymphatic no cervical or axillary lymphadenopathy Discharge Data Allergies Allergy/AdvReac Type Severity Reaction Status Date / Time shellfish derived Allergy LIPS & Verified 07/01/20 12:27 MOUTH SWELLS, ITCHY Consultations 07/01/20 14:51 ED Decision to Admit Stat Ordered Studies 07/04/20 14:24 CT angio chest PE protocol Routine Hospital Course (1) Acute respiratory failure with hypoxia: 2nd to extensive/severe COVID-19 pneumonia. developing ARDS with increased oxygen requirements placed on high flow, 40L and 100% FiO2 in the evening on 07/07 titrated down to wall high flow 07/12 and then room air by 07/13 in the morning rapidly improving 2 step done on 07/13, he was okay on room air at rest but needed 4L on exertion he walked a lot further than he will be walking at home, he plans to rest for the next week sent home on oxygen, 4L on exertion stay well hydrated, well nourished Completed 5-day course of remdesivir. completed 12 days of IV dexamethasone on 07/12 s/p plasma infusion 07/02/2020. 7 days of IV rocephin and IV doxycycline to cover for superimposed bacterial pneumonia, stopped 07/08 (2) Pneumonia due to COVID-19 virus: CTA with no PE, just shows multifocal pneumonia Encouraged frequent self-proning, see above he can now lay supine and sit up all the time, saturations stable Completed 5-day remdesivir course. completed 12 days of IV dexamethasone, last day 07/12 s/p plasma. Cont lovenox BID for DVT proph. Patient recently prescribed Breo as outpatient recently - will continue. Continue vit D, vit C, and zinc supplementation. (3) ARDS (adult respiratory distress syndrome): 2nd to COVID-19 see above at the peak he required 40L and 100% FiO2 discharged home on room air at rest and 4L on exertion (4) Elevated LFTs: Likely secondary to Covid-19 infection. Resolved. (5) Hyponatremia: Lowest level was 130. 1/18: 134 Appears euvolemic on exam (6) Anxiety: give Ativan 0.5mg IV q8, help him relax if needed no longer requiring this (7) Insomnia: Melatonin. Encouraged blinds up, OOB to chair if tolerated, etc. (8) Candidiasis of mouth and esophagus: resume Nystatin (9) ADHD: Can continue Mydayis using home stock, if desired by patient. (10) RBBB: As seen on EKG. No ACS or cardiac symptoms at this time. Telemetry continues to be wnl. Total Time Total Time Spent Total Time Spent (In Minutes): 36 minutes Total Time Includes: Examination of the Patient, Discharge Planning, Medication Reconciliation and Other (arranging home oxygen) Discharge Plan Discharge Items Patient Disposition: Home - Self-Care Reason For Visit: COVID-19 PNEUMONIA, HYPOXIA Discharge Diagnosis: COVID 19 pneumonia Acute hypoxic respiratory failure Condition on Discharge: Good Goals: stay well rested, well nourished, well hydrated use supplemental oxygen for the next 1-2 weeks Activity: Resume your previous activity Bathing: No limitations Exercise/Sports: Gradually increase as tolerated Weightbearing: Full weightbearing Non-emergency contact: Primary Care Provider Call non-emergency contact if: you have any medication questions Follow-up/Referrals: Mir Farley [Primary Care Provider] - (one week, phone call visit is fine) Diet: Regular Addtl Attending Provider Instructions: Medications: - NYSTATIN: continue to use four times a day for the next week for sore mouth, candiasis COVID 19 pneumonia with acute hypoxic respiratory failure treated with Dexamethasone for 12 days completed 5 days of Remdesivir and had plasma transfusion completed 7 days of Rocephin and Doxycycline for antibiotic coverage you required high flow nasal canula but now titrated down to room air at rest exercise study today shows that you need 4L on exertion I would recommend wearing 4L whenever you walk around the house you can wear 1-2 liters at rest if you feel more comfortable I would anticipate coming off oxygen completely in the next 1-2 weeks as your lungs completely recover stay well rested, stay well nourished, well hydrated light activity for the next week around the house as you recover Pending Studies at Discharge: No Stand-Alone Forms: [facility], Smoking Cessation Medications and DC Order Prescriptions: New nystatin 100,000 unit/mL Suspension 5 ml PO QID 7 Days Qty: 140 RF: 0 Continued ascorbic acid (vitamin C) [Vitamin C] 1,000 mg Tablet 1 g PO DAILY RF: 0 montelukast [Singulair] 10 mg tablet 10 mg PO DAILY RF: 0 zinc 50 mg Tablet 50 mg PO DAILY RF: 0 cholecalciferol (vitamin D3) [Vitamin D3] 125 mcg (5,000 unit) Tablet 125 mcg PO DAILY RF: 0 Breo Ellipta 200-25 mcg/dose blister with device 1 ea INHALATION DAILY RF: 0 Mydayis 37.5 mg capsule, ER triphasic 24 hr 37.5 mg PO DAILY RF: 0 Queretin 1 tab PO DAILY RF: 0 Discontinued prednisone 20 mg tablet 20 mg PO UD RF: 0 azithromycin 500 mg tablet 500 mg PO DAILY RF: 0 dexamethasone 6 mg tablet 6 mg PO DAILY Qty: 6 RF: 0 Discharge Orders: Discharge Order (Routine); Ordered 07/13/20 Ordered By: Rajesh Merida/Other Patient Handouts: 5 Steps for Eating Healthier, Using an Oxygen Tank at Home, A1C, Disinfecting Your Home of COVID-19 Admission Data Admit Date/Time: 07/01/20 15:09 Attending Provider: Rajesh Sanon Admit Provider: Mary Guzman Primary Care Provider: Mir Farley Other Providers: Mary Guzman Other Interventions: Discharge Summary Assessment (RN) Last Done: 07/13/20 16:11 Coding Level of Care Code D/C Day Management >30 mins Diagnoses Acute respiratory failure with hypoxia J96.01 Pneumonia due to COVID-19 virus U07.1; J12.82 ARDS (adult respiratory distress syndrome) J80 Elevated LFTs R79.89 Hyponatremia E87.1 Anxiety F41.9 Insomnia G47.00 Insomnia type: unspecified Candidiasis of mouth and esophagus B37.81; B37.0 ADHD F90.9 Attention deficit-hyperactivity disorder type: unspecified RBBB I45.10
== END 2020-07-13 17:20 | disposition home or self-care (01) | DRG 177 ==
LOC: ED 11:37 → SUATTDRO 15:09 → 2N 15:09 → 2E 07-07 11:47 → 3E 07-12 21:50